=== PATIENT | female | born 1945 | race Hispanic/Latino ===

== ENCOUNTER 2017-08-23 07:10 | Inpatient (IN) | payer MEDICARE ==
[2017-08-19 11:31] VITALS: BMI 21.0
[2017-08-23 07:36] LABS: BASO # 0.01 K/mm3 (0.0-2.0); BASO % 0.2 % (0.0-3.0); EOS # 0.2 (0.0-0.7); GRAN # 2.98 (1.4-6.5); GRAN % 59.9 % (50.0-68.0); HEMOGLOBIN 9.9 g/dL (12.0-16.0); LYMPH # 1.4 (1.2-3.4); LYMPH % 28.3 % (22.0-35.0); MEAN CELL VOLUME 88.4 fl (80.0-105.0); MEAN CORPUSCULAR HEMOGLOBIN 28.1 pg (25.0-35.0); MEAN CORPUSCULAR HGB CONC 31.8 g/dl (31.0-37.0); MEAN PLATELET VOLUME 9.8 fl (7.0-11.0); MONO # 0.4 (0.1-0.6); MONO % 8.6 % (1.0-6.0); RBC 3.52 10^6/uL (3.5-6.1); RED CELL DISTRIBUTION WIDTH 16.2 % (11.5-14.5)
[2017-08-23] MEDS ORDERED: Lidocaine 2% Inj (20ml) ONE (07:37)
[2017-08-23] MEDS ORDERED: HEPARIN SODIUM/NS 3,000 ML IV ONE (07:38)
[2017-08-23] MEDS ORDERED: Nitroglycerin 50mg in D5W 50 MG/250 ML BOTTLE IV ONE (07:38)
[2017-08-23] MEDS ORDERED: Iodixanol 320 MG/ML 100 ML BOTTLE IV ONE ×2 (07:38→12:08)
[2017-08-23] MEDS ORDERED: Iodixanol 320 MG/ML 200 ML BOTTLE IV ONE (07:38)
[2017-08-23 07:48] LABS: BLOOD UREA NITROGEN 17 mg/dL (7-21); CALCIUM 9.3 mg/dL (8.4-10.5); GFR AFRICAN-AMERICAN > 60; GFR NON-AFRICAN AMERICAN 55
[2017-08-23 07:58] LABS: INR 0.95 (0.93-1.08); PARTIAL THROMBOPLASTIN TIME 30.1 Seconds (25.1-36.5); PROTHROMBIN TIME 10.9 SECONDS (9.4-12.5)
[2017-08-23] MEDS: Midazolam 2 MG/2 ML VIAL ONE ×6 (10:31→15:21)
[2017-08-23] MEDS ORDERED: Midazolam 2 MG/2 ML VIAL ONE (11:50)
[2017-08-23] MEDS ORDERED: Atropine-Diphenoxylate 0.025-2.5 mg Tab PO PRN (12:49)
[2017-08-23] MEDS ORDERED: Morphine 2 mg/ml ISec ONE (12:57)
[2017-08-23] MEDS ORDERED: Sodium Chloride 0.45% 1,000 ML IV SCH (13:00)
[2017-08-23] MEDS ORDERED: Morphine 2 mg/ml ISec IVP STA (13:11)
[2017-08-23] MEDS ORDERED: Iodixanol 320 mg/ml 150 ml Bottle IV ONE (14:25)
--- NOTE | 2017-08-23 14:25 | VASCULAR ---
PROCEDURE: Removal of tunneled right internal jugular venous access port. CLINICAL HISTORY: Colorectal CA. Completed chemotherapy. Remove port. PHYSICIAN(S): Enrique Velez M.D. TECHNIQUE: The relative risks and indications of the procedure were explained to the patient and consent obtained. The patient was placed supine on the arteriogram table and the right neck and chest prepped and draped usual sterile fashion. Conscious sedation and monitoring were provided throughout the procedure by a nurse. 1% Xylocaine was used to anesthetize the skin and soft tissues at the port. A 4 cm incision was made. The port was bluntly dissected and removed. The catheter was removed under fluoroscopic guidance. No retained catheter fragments were seen. The pocket was lavaged with normal saline. The pocket was closed in 2 layers. The patient tolerated the procedure well. IMPRESSION: 1. Removal of tunneled right internal jugular venous access port.
[2017-08-23 14:30] LABS: VENOUS BLOOD GAS PO2 29 mm/Hg (30-55); VENOUS BLOOD PH 7.24 (7.32-7.43)
--- NOTE | 2017-08-23 14:36 | VASCULAR ---
PROCEDURE: 1. Abdominal aortogram and bilateral lower extremity runoff with right selective views. 2. Right external iliac artery angioplasty and stent placement. External iliac rupture with stent graft placement 3. Right SFA silver Hawk atherectomy and drug-eluting balloon angioplasty HISTORY: Severe peripheral vascular disease. Previous pelvic radiation. Severe lower extremity claudication, right greater than left. PHYSICIAN(S): Enrique Velez M.D. TECHNIQUE: The relative risks and indications of the procedure were explained to the patient and her daughter and consent obtained. The patient was hydrated prior to the procedure and the appropriate labs drawn. The patient was placed supine on the arteriogram table and the left groin prepped and draped in the usual sterile fashion. Conscious sedation and monitoring were provided throughout the procedure by a nurse. Via a left common femoral artery approach, a 5 [place] sheath was placed in the left groin. Through the sheath and over a guidewire, a 5 [place] flush catheter was placed in the abdominal aorta at the level of the renal arteries and a PA DSA abdominal aortogram performed. The catheter was pulled down to the aortic bifurcation and bilateral oblique DSA pelvic arteriograms performed. Overlapping bilateral lower extremity DSA arteriograms were obtained from the inguinal ligaments to the ankles. A 0.035 angled Glidewire was advanced over the bifurcation and placed in the proximal right SFA. A 7 [place] 45 cm destination sheath was placed in the right common femoral artery. Multiple pull-back pressures were performed through the right iliac system which demonstrated a significant 40-50 millimeter gradient across the right external iliac artery. The multi focal disease in the right SFA was crossed with a 5 [place] catheter and angled Glidewire. Exchange is made for 0.014 support guidewire. Heparin and nitroglycerin were given. [place] Hawk atherectomy of the mid to distal right SFA was performed with and LS catheter. Approximately 5 passes were performed. An improved but suboptimal result was obtained. The mid-distal right SFA was dilated with a 5 mm drug-eluting balloon. An excellent angiographic result was obtained and no stent was required. The sheath was retracted into the right common iliac artery. The right external iliac artery was dilated with a 7 mm balloon. An improved but suboptimal result was obtained. An 8 mm x 120 mm self expanding stent was deployed across the right external iliac artery. The stent was post dilated. The patient experienced significant pain at this point. A DSA angiogram revealed extravasation. Immediately, an 8 mm balloon was reinflated at the extravasation site. The patient was stabilized. 0.018 guidewire was placed in the right SFA through the balloon catheter. Quickly, exchange is made and deployment of 7 mm x 10 cm Viabahn stent graft. The stent graft was dilated with a 7 mm balloon. Completion angiograms demonstrated no evidence of significant extravasation. The patient was stable without significant pain. She was transferred to recovery. A Perclose device was deployed at the left groin puncture site. FINDINGS: There is diffuse calcified atherosclerotic disease of the visualized abdominal aorta. A small aneurysm is present. The nephrograms symmetric in size. There are 2 right renal arteries and single left renal artery present. The aortic bifurcation demonstrates calcified disease. Irregularity of the left common iliac artery with stenosis is noted. A right common iliac artery is calcified and smooth. The external iliac arteries are small in calcified bilaterally. No obvious radiographic stenosis is noted in the right external iliac artery. However the ABIs are abnormal and pull-back pressures demonstrated a significant gradient across the right external iliac artery. The left external iliac artery demonstrates similar calcified disease. Right lower extremity: The right common femoral artery is patent. The right profunda femoral artery is patent. The right superficial femoral artery is small and smoothly calcified with multiple moderate to severe stenoses in the mid to distal 3rd. The right popliteal artery is patent and relatively normal. The right trifurcation is intact. There is normal 3 vessel tibial runoff on the right. Left lower extremity: Left common femoral artery is patent. The left profunda femoral artery is patent. The left superficial femoral artery is small and calcified with a moderate focal stenosis in the adductor canal. The left popliteal artery is patent and continuous. The left trifurcation is intact. There is normal 3 vessel tibial runoff on the left.. IMPRESSION: 1.Right external iliac artery angioplasty and stent placement 2. Focal rupture of the mid right external iliac artery. This was successfully treated with a Viabahn stent graft. 3. Successful right SFA silver Hawk atherectomy and drug-eluting balloon angioplasty.
[2017-08-23 14:37] LABS: MEAN CELL VOLUME 88.3 fl (80.0-105.0); MEAN CORPUSCULAR HEMOGLOBIN 28.6 pg (25.0-35.0); MEAN CORPUSCULAR HGB CONC 32.4 g/dl (31.0-37.0); MEAN PLATELET VOLUME 10.4 fl (7.0-11.0); RBC 2.31 10^6/uL (3.5-6.1); RED CELL DISTRIBUTION WIDTH 16.5 % (11.5-14.5); WHITE BLOOD COUNT 6.6 10^3/ul (4.5-11.0)
[2017-08-23 14:46] LABS: HEMOGLOBIN 6.6 g/dL (12.0-16.0); INR 1.15 (0.93-1.08); PROTHROMBIN TIME 13.1 SECONDS (9.4-12.5)
[2017-08-23] MEDS ORDERED: Protamine 50mg/5mL Inj IV ONE (14:56)
[2017-08-23] MEDS ORDERED: Sodium Bicarbonate 8.4% 150 MEQ in Dextrose 5% In Water 1,000 ML IV SCH (15:30)
--- NOTE | 2017-08-23 15:34 | CP.PCM.HP ---
History of Present Illness - History of Present Illness History of Present Illness: 72 year old female with history of rectal cancer, emphysema, and peripheral vascular disease who had angiogram today by Dr. Enrique Velez. Patient began bleeding and hemoglobin dropped from 9.9 to 6.6. Patient's blood pressure also dropped, so she was transferred to the Intensive Care unit for admission. She complains of abdominal and groin pain at this time. Present on Admission - Present on Admission Any Indicators Present on Admission: No History of DVT/PE: No History of Uncontrolled Diabetes: No Urinary Catheter: No Decubitus Ulcer Present: No Review of Systems - Cardiovascular Cardiovascular: absent: Chest Pain, Diaphoresis, Dyspnea - Respiratory Respiratory: absent: Cough, Dyspnea, Hemoptysis - Gastrointestinal Gastrointestinal: As Per HPI, Abdominal Pain Past Patient History - Infectious Disease Hx of Infectious Diseases: None - Tetanus Immunizations Tetanus Immunization: >10 years Ago - Past Social History Smoking Status: Current Some Days Smoker - CARDIAC Hx Pacemaker: No - PULMONARY Hx Respiratory Disorders: Yes Hx Chronic Obstructive Pulmonary Disease (COPD): Yes Other/Comment: SMOKES CIGARETTES 2 TO A PPD - HEENT Hx HEENT Problems: (WEARS RX GLASSES) - RENAL Hx Chronic Kidney Disease: No - HEMATOLOGICAL/ONCOLOGICAL Hx Blood Transfusions: No Hx Blood Transfusion Reaction: No - INTEGUMENTARY Hx Dermatological Problems: No - MUSCULOSKELETAL/RHEUMATOLOGICAL Hx Musculoskeletal Disorders: No - GASTROINTESTINAL Hx Gastrointestinal Disorders: Yes Hx Diverticulitis: Yes Hx Gall Bladder Disease: Yes (CHOLECYSTECTOMY) Other/Comment: rectal cancer,PERIRECTAL ABSCESS - GENITOURINARY/GYNECOLOGICAL Hx Genitourinary Disorders: No - PSYCHIATRIC Hx Emotional Abuse: No Hx Physical Abuse: No Hx Substance Use: No - SURGICAL HISTORY Hx Surgeries: Yes - ANESTHESIA Hx Anesthesia Reactions: Yes Hx Malignant Hyperthermia: No Meds Allergies/Adverse Reactions: Allergies Allergy/AdvReac Type Severity Reaction Status Date / Time ciprofloxacin [From Cipro] Allergy VOMITING Verified 08/23/17 07:48 Physical Exam - Constitutional Appears: No Acute Distress - Head Exam Head Exam: ATRAUMATIC, NORMOCEPHALIC - Respiratory Exam Respiratory Exam: Clear to Auscultation Bilateral, NORMAL BREATHING PATTERN - Cardiovascular Exam Cardiovascular Exam: +S1, +S2 - GI/Abdominal Exam GI & Abdominal Exam: Soft, Tenderness - Neurological Exam Neurological exam: Alert, CN II-XII Intact, Oriented x3 Results - Vital Signs Recent Vital Signs: Last Vital Signs Temp 97.8 F 08/23/17 14:30 Pulse 71 08/23/17 14:30 Resp 16 08/23/17 14:30 BP 122/53 L 08/23/17 14:30 Pulse Ox 99 08/23/17 07:20 - Labs Result Diagrams: 08/23/17 14:15 08/23/17 07:25 Labs: Laboratory Results - last 24 hr 08/23/17 08/23/17 08/23/17 07:25 07:25 07:25 WBC 5.0 D RBC 3.52 Hgb 9.9 L Hct 31.1 L MCV 88.4 MCH 28.1 MCHC 31.8 RDW 16.2 H Plt Count 253 MPV 9.8 Gran % 59.9 Lymph % (Auto) 28.3 [place] % (Auto) 8.6 H Eos % (Auto) 3.0 Baso % (Auto) 0.2 Gran # 2.98 Lymph # (Auto) 1.4 [place] # (Auto) 0.4 Eos # (Auto) 0.2 Baso # (Auto) 0.01 PT 10.9 INR 0.95 APTT 30.1 pO2 VBG pH VBG pCO2 VBG HCO3 VBG Total CO2 VBG O2 Sat (Calc) VBG Base Excess VBG Potassium Glucose Lactate FiO2 Sodium 147 Potassium 3.9 Chloride 110 H Carbon Dioxide 26 Anion Gap 14 BUN 17 Creatinine 1.0 Est GFR ( Amer) > 60 Est GFR (Non-Af Amer) 55 Random Glucose 93 Calcium 9.3 Troponin I Venous Blood Potassium Blood Type Antibody Screen Crossmatch BBK History Checked 08/23/17 08/23/17 08/23/17 14:15 14:15 14:15 WBC 6.6 D RBC 2.31 L Hgb 6.6 L* D Hct 20.4 L* MCV 88.3 MCH 28.6 MCHC 32.4 RDW 16.5 H Plt Count 193 MPV 10.4 Gran % Lymph % (Auto) [place] % (Auto) Eos % (Auto) Baso % (Auto) Gran # Lymph # (Auto) [place] # (Auto) Eos # (Auto) Baso # (Auto) PT 13.1 H INR 1.15 H APTT 51.0 H pO2 VBG pH VBG pCO2 VBG HCO3 VBG Total CO2 VBG O2 Sat (Calc) VBG Base Excess VBG Potassium Glucose Lactate FiO2 Sodium Potassium Chloride Carbon Dioxide Anion Gap BUN Creatinine Est GFR ( Amer) Est GFR (Non-Af Amer) Random Glucose Calcium Troponin I Venous Blood Potassium Blood Type A POSITIVE Antibody Screen Negative Crossmatch See Detail BBK History Checked No verified bt 08/23/17 08/23/17 14:15 14:15 WBC RBC Hgb Hct MCV MCH MCHC RDW Plt Count MPV Gran % Lymph % (Auto) [place] % (Auto) Eos % (Auto) Baso % (Auto) Gran # Lymph # (Auto) [place] # (Auto) Eos # (Auto) Baso # (Auto) PT INR APTT pO2 29 L VBG pH 7.24 L VBG pCO2 45.0 VBG HCO3 19.3 L VBG Total CO2 20.7 L VBG O2 Sat (Calc) 59.7 VBG Base Excess -8.0 L VBG Potassium 3.8 Glucose 119 H Lactate 1.2 FiO2 21.0 Sodium 142.0 Potassium Chloride 118.0 H Carbon Dioxide Anion Gap BUN Creatinine Est GFR ( Amer) Est GFR (Non-Af Amer) Random Glucose Calcium Troponin I < 0.01 Venous Blood Potassium 3.8 Blood Type Antibody Screen Crossmatch BBK History Checked Assessment & Plan - Assessment and Plan (Free Text) Assessment: Retroperitoneal bleed after angiogram Acute blood loss anemia COPD History of Rectal Ca s/p radiation and chemo History of diverticulitis Plan: Patient is admitted to the ICU for acute blood loss anemia after angiogram. Patient will received blood transfusion. monitor hemoglobin. Respiratory treatments via nebulizer for COPD
--- NOTE | 2017-08-23 15:37 | RAD ---
HISTORY: POST TRACH COMPARISON: 06/03/2017 FINDINGS: LUNGS: No active pulmonary disease. PLEURA: No significant pleural effusion identified, no pneumothorax apparent. CARDIOVASCULAR: Normal. OSSEOUS STRUCTURES: No significant abnormalities. VISUALIZED UPPER ABDOMEN: Normal. OTHER FINDINGS: None. IMPRESSION: No active disease.
[2017-08-23 15:38] LABS: ARTERIAL BLOOD GAS HCO3 17.7 mmol/L (21-28); ARTERIAL BLOOD GAS O2 SAT 97.8 % (95-98); ARTERIAL BLOOD GAS PCO2 32 mm/Hg (35-45); ARTERIAL BLOOD GAS PH 7.35 (7.35-7.45); ARTERIAL BLOOD GAS TCO2 18.7 mmol.L (22-28)
--- NOTE | 2017-08-23 15:39 | CT ---
PROCEDURE: CT Pelvis with and without contrast HISTORY: rt ext iliac MUSICAL ENGINEER/rupture. S/p stent graft. ?extr COMPARISON: Comparison to angiographic images from 09/20 2017 at 1:12 p.m. TECHNIQUE: Contiguous axial images of the pelvis with contrast. Coronal and sagittal reformats generated. Contrast dose: 75 cc of Visipaque Radiation dose: Total exam DLP = 650 mGy-cm. This CT exam was performed using one or more of the following dose reduction techniques: Automated exposure control, adjustment of the mA and/or kV according to patient size, and/or use of iterative reconstruction technique. FINDINGS: THE PRECONTRAST IMAGES SHOW A LARGE AMOUNT OF EXTRAVASATED DENSE CONTRAST MATERIAL IN THE RETROPERITONEAL SPACE ON THE RIGHT SIDE. . THIS CORRELATES WITH THE ANGIOGRAPHIC IMAGES. THE CONTRAST IS IN THE RIGHT [place] RENAL SPACE SURROUNDING THE KIDNEY AND IN THE RIGHT PERICOLIC GUTTER.: The postcontrast images show no evidence of new or continued contrast extravasation. A right-sided iliac stent is visualized. The study was reviewed with Dr. Mosquera at 3:20 p.m. IMPRESSION: Extensive extravasation of contrast into the retroperitoneal space on the right from recent right iliac artery rupture. There is no evidence of new or continued extravasation
--- NOTE | 2017-08-23 15:57 | CP.PCM.CON ---
History of Present Illness - History of Present Illness History of Present Illness: Vascular Surgery Consult for Dr. Mosquera Consulted for: retroperitoneal hemorrhage Patient is a 72y/o female with PMH of rectal cancer, cervical cancer, and chronic cigarette abuse who underwent an Abdominal aortogram and bilateral lower extremity runoff, right external iliac artery angioplasty and stent placement, and right SFA atherectomy and drug-eluting balloon angioplasty. During the procedure a rupture of the external iliac artery occured and a stent graft placement done at that time, which appeared to stop the hemorrhage. Patient became moderately hypotensive but responded appropriately to fluids, and is currently normacardic. Post-procedure MRA of the lower extremities showed contrast in the retroperitoneum indicating there was a previous hemorrhage but no new extravasation was evident. Patient was transferred to the ICU. Patient's hemoglobin dropped from 9.9 to 6.6. Patient currently complaining of pain in her abdomen, bilateral groins, and back. Patient denies any nausea or vomiting. Patient has good urine output. Review of Systems - Review of Systems All systems: reviewed and no additional remarkable complaints except (as per the HPI) Past Patient History - Infectious Disease Hx of Infectious Diseases: None - Tetanus Immunizations Tetanus Immunization: >10 years Ago - Past Social History Smoking Status: Current Some Days Smoker Alcohol: None Drugs: Denies - CARDIAC Hx Pacemaker: No - PULMONARY Hx Respiratory Disorders: Yes Hx Chronic Obstructive Pulmonary Disease (COPD): Yes Other/Comment: SMOKES CIGARETTES 2 TO A PPD - HEENT Hx HEENT Problems: (WEARS RX GLASSES) - RENAL Hx Chronic Kidney Disease: No - HEMATOLOGICAL/ONCOLOGICAL Hx Blood Transfusions: No Hx Blood Transfusion Reaction: No - INTEGUMENTARY Hx Dermatological Problems: No - MUSCULOSKELETAL/RHEUMATOLOGICAL Hx Musculoskeletal Disorders: No - GASTROINTESTINAL Hx Gastrointestinal Disorders: Yes Hx Diverticulitis: Yes Hx Gall Bladder Disease: Yes (CHOLECYSTECTOMY) Other/Comment: rectal cancer,PERIRECTAL ABSCESS - GENITOURINARY/GYNECOLOGICAL Hx Genitourinary Disorders: No - PSYCHIATRIC Hx Emotional Abuse: No Hx Physical Abuse: No Hx Substance Use: No - SURGICAL HISTORY Hx Surgeries: Yes - ANESTHESIA Hx Anesthesia Reactions: Yes Hx Malignant Hyperthermia: No Meds Allergies/Adverse Reactions: Allergies Allergy/AdvReac Type Severity Reaction Status Date / Time ciprofloxacin [From Cipro] Allergy VOMITING Verified 08/23/17 07:48 - Medications Medications: Current Medications Albuterol/Ipratropium (Duoneb 3 Mg/0.5 Mg (3 Ml) Ud) 3 ml IH [id number] [facility] Atorvastatin Calcium (Lipitor) 20 mg PO DAILY [facility] Diazepam (Valium) 5 mg PO DAILY PRN; Protocol PRN Reason: Anxiety Diphenhydramine HCl (Benadryl) 50 mg PO HS [facility] Diphenoxylate HCl/Atropine (Lomotil 0.025-2.5 Mg Tablet) 2.5 tab PO Q6H PRN PRN Reason: Diarrhea Sodium Bicarbonate 150 meq/ (Dextrose) 1,150 mls @ 100 mls/hr IV .[id number] [facility] Morphine Sulfate (Morphine) 2 mg IVP Q4H PRN PRN Reason: Pain, severe (8-10) Ondansetron HCl (Zofran Inj) 4 mg IVP ONCE PRN PRN Reason: Nausea/Vomiting Oxycodone/Acetaminophen (Percocet 5/325 Mg Tab) 1 tab PO Q4H PRN PRN Reason: Pain, moderate (4-7) Stop: 08/26/17 12:47 Pantoprazole Sodium (Protonix Inj) 40 mg IVP DAILY [facility] Last Admin: 08/23/17 15:43 Dose: 40 mg Tramadol HCl (Ultram) 50 mg PO Q6H PRN PRN Reason: Pain, moderate (4-7) Zolpidem Tartrate (Ambien) 5 mg PO HS PRN; Protocol PRN Reason: Sleep Physical Exam - Constitutional Appears: Non-toxic, No Acute Distress - Head Exam Head Exam: ATRAUMATIC, NORMOCEPHALIC - Eye Exam Eye Exam: EOMI Additional comments: scleral pallor - ENT Exam ENT Exam: Mucous Membranes Moist - Respiratory Exam Respiratory Exam: NORMAL BREATHING PATTERN. absent: Accessory Muscle Use, Respiratory Distress - Cardiovascular Exam Cardiovascular Exam: RRR - GI/Abdominal Exam GI & Abdominal Exam: Soft, Tenderness (diffuse tenderness worse in the RLQ and the LLQ and suprapubis). absent: Distended, Guarding, Rebound, Rigid - Extremities Exam Extremities exam: Positive for: pedal pulses present. Negative for: calf tenderness, pedal edema Additional comments: posterior popliteal pulses palpable BL. Both lower extremities warm, dry, normal color, neuromuscular exam intact. Left groin access point without sanguinous saturation, no swelling bilateral groins - Back Exam Additional comments: unable to assess d/t current movement restrictions post angioplasty with groin access - Neurological Exam Neurological exam: Alert, Oriented x3 - Psychiatric Exam Psychiatric exam: Normal Affect, Normal Mood - Skin Skin Exam: Dry, Intact, Pallor, Warm Results - Vital Signs Recent Vital Signs: Last Vital Signs Temp 97.8 F 08/23/17 14:30 Pulse 71 08/23/17 14:30 Resp 16 08/23/17 14:30 BP 122/53 L 08/23/17 14:30 Pulse Ox 99 08/23/17 07:20 - Labs Result Diagrams: 08/23/17 14:15 08/23/17 07:25 Labs: Laboratory Results - last 24 hr 08/23/17 08/23/17 08/23/17 07:25 07:25 07:25 WBC 5.0 D RBC 3.52 Hgb 9.9 L Hct 31.1 L MCV 88.4 MCH 28.1 MCHC 31.8 RDW 16.2 H Plt Count 253 MPV 9.8 Gran % 59.9 Lymph % (Auto) 28.3 [place] % (Auto) 8.6 H Eos % (Auto) 3.0 Baso % (Auto) 0.2 Gran # 2.98 Lymph # (Auto) 1.4 [place] # (Auto) 0.4 Eos # (Auto) 0.2 Baso # (Auto) 0.01 PT 10.9 INR 0.95 APTT 30.1 pCO2 pO2 HCO3 ABG pH ABG Total CO2 ABG O2 Saturation ABG Base Excess ABG Potassium VBG pH VBG pCO2 VBG HCO3 VBG Total CO2 VBG O2 Sat (Calc) VBG Base Excess VBG Potassium Glucose Lactate FiO2 Sodium 147 Potassium 3.9 Chloride 110 H Carbon Dioxide 26 Anion Gap 14 BUN 17 Creatinine 1.0 Est GFR ( Amer) > 60 Est GFR (Non-Af Amer) 55 Random Glucose 93 Calcium 9.3 Troponin I Arterial Blood Potassium Venous Blood Potassium Blood Type Blood Type Confirm Antibody Screen Crossmatch BBK History Checked 08/23/17 08/23/17 08/23/17 14:15 14:15 14:15 WBC 6.6 D RBC 2.31 L Hgb 6.6 L* D Hct 20.4 L* MCV 88.3 MCH 28.6 MCHC 32.4 RDW 16.5 H Plt Count 193 MPV 10.4 Gran % Lymph % (Auto) [place] % (Auto) Eos % (Auto) Baso % (Auto) Gran # Lymph # (Auto) [place] # (Auto) Eos # (Auto) Baso # (Auto) PT 13.1 H INR 1.15 H APTT 51.0 H pCO2 pO2 HCO3 ABG pH ABG Total CO2 ABG O2 Saturation ABG Base Excess ABG Potassium VBG pH VBG pCO2 VBG HCO3 VBG Total CO2 VBG O2 Sat (Calc) VBG Base Excess VBG Potassium Glucose Lactate FiO2 Sodium Potassium Chloride Carbon Dioxide Anion Gap BUN Creatinine Est GFR ( Amer) Est GFR (Non-Af Amer) Random Glucose Calcium Troponin I Arterial Blood Potassium Venous Blood Potassium Blood Type A POSITIVE Blood Type Confirm Antibody Screen Negative Crossmatch See Detail BBK History Checked No verified bt 08/23/17 08/23/17 08/23/17 14:15 14:15 14:40 WBC RBC Hgb Hct MCV MCH MCHC RDW Plt Count MPV Gran % Lymph % (Auto) [place] % (Auto) Eos % (Auto) Baso % (Auto) Gran # Lymph # (Auto) [place] # (Auto) Eos # (Auto) Baso # (Auto) PT INR APTT pCO2 pO2 29 L HCO3 ABG pH ABG Total CO2 ABG O2 Saturation ABG Base Excess ABG Potassium VBG pH 7.24 L VBG pCO2 45.0 VBG HCO3 19.3 L VBG Total CO2 20.7 L VBG O2 Sat (Calc) 59.7 VBG Base Excess -8.0 L VBG Potassium 3.8 Glucose 119 H Lactate 1.2 FiO2 21.0 Sodium 142.0 Potassium Chloride 118.0 H Carbon Dioxide Anion Gap BUN Creatinine Est GFR ( Amer) Est GFR (Non-Af Amer) Random Glucose Calcium Troponin I < 0.01 Arterial Blood Potassium Venous Blood Potassium 3.8 Blood Type Blood Type Confirm A POSITIVE Antibody Screen Crossmatch BBK History Checked 08/23/17 15:30 WBC RBC Hgb Hct MCV MCH MCHC RDW Plt Count MPV Gran % Lymph % (Auto) [place] % (Auto) Eos % (Auto) Baso % (Auto) Gran # Lymph # (Auto) [place] # (Auto) Eos # (Auto) Baso # (Auto) PT INR APTT pCO2 32 L pO2 75.0 L HCO3 17.7 L ABG pH 7.35 ABG Total CO2 18.7 L ABG O2 Saturation 97.8 ABG Base Excess -6.8 L ABG Potassium 3.5 L VBG pH VBG pCO2 VBG HCO3 VBG Total CO2 VBG O2 Sat (Calc) VBG Base Excess VBG Potassium Glucose 112 H Lactate 0.9 FiO2 21.0 Sodium 139.0 Potassium Chloride 117.0 H Carbon Dioxide Anion Gap BUN Creatinine Est GFR ( Amer) Est GFR (Non-Af Amer) Random Glucose Calcium Troponin I Arterial Blood Potassium 3.5 L Venous Blood Potassium Blood Type Blood Type Confirm Antibody Screen Crossmatch BBK History Checked Assessment & Plan - Assessment and Plan (Free Text) Assessment: 72F with retroperitoneal hemorrhage d/t iatrogenic external iliac artery rupture. Hemorrhage appears to have resolved currently Hemodynamically stable Plan: -Continue ICU monitoring -Strict I&O, close monitoring of vitals -serial abdominal exams -Q4 H/H -Administering PRBC and platelets -No vascular surgery intervention indicated at this point--will continue to monitor closely Seen and examined with Dr. Demetri Russo, PGY2
[2017-08-23] MEDS: Morphine 2 mg/ml ISec IVP PRN ×2 (16:12→20:21)
[2017-08-23] MEDS: Albuterol-Ipratrop 3 mg / 0.5 (3 ml) UD IH SCH (20:50)
[2017-08-23] MEDS ORDERED: Influenza Vaccine 60 mcg/0.5 mL SYR (4YR UP) IM ONE (21:36)
[2017-08-23] MEDS ORDERED: Pneumococcal 23-Valent Vaccine IM ONE (21:36)
--- NOTE | 2017-08-23 22:18 | CARD ---
APPROVED REPORT EKG Measurement Heart [id number] <Conclusion> Normal sinus rhythm Low voltage QRS Prolonged QT Abnormal ECG
[2017-08-23 22:28] LABS: HEMOGLOBIN 9.1 g/dL (12.0-16.0); MEAN CELL VOLUME 86.2 fl (80.0-105.0); MEAN CORPUSCULAR HEMOGLOBIN 29.2 pg (25.0-35.0); MEAN CORPUSCULAR HGB CONC 33.8 g/dl (31.0-37.0); MEAN PLATELET VOLUME 9.2 fl (7.0-11.0); RBC 3.12 10^6/uL (3.5-6.1); RED CELL DISTRIBUTION WIDTH 14.9 % (11.5-14.5); WHITE BLOOD COUNT 6.5 10^3/ul (4.5-11.0)
[2017-08-23 22:29] LABS: VENOUS BLOOD GAS BASE EXCESS -2.2 mmol/L (0.0-2.0); VENOUS BLOOD GAS PO2 31 mm/Hg (30-55); VENOUS BLOOD PH 7.39 (7.32-7.43)
[2017-08-23 22:42] LABS: INR 1.03 (0.93-1.08); PARTIAL THROMBOPLASTIN TIME 27.8 Seconds (25.1-36.5); PROTHROMBIN TIME 11.8 SECONDS (9.4-12.5)
[2017-08-24 01:59] LABS: HEMOGLOBIN 8.6 g/dL (12.0-16.0); MEAN CELL VOLUME 85.2 fl (80.0-105.0); MEAN CORPUSCULAR HEMOGLOBIN 28.9 pg (25.0-35.0); MEAN CORPUSCULAR HGB CONC 33.9 g/dl (31.0-37.0); MEAN PLATELET VOLUME 8.6 fl (7.0-11.0); RBC 2.98 10^6/uL (3.5-6.1); RED CELL DISTRIBUTION WIDTH 14.9 % (11.5-14.5); WHITE BLOOD COUNT 6.4 10^3/ul (4.5-11.0)
[2017-08-24] MEDS: Albuterol-Ipratrop 3 mg / 0.5 (3 ml) UD IH SCH ×4 (02:15→19:46)
[2017-08-24] MEDS: Morphine 2 mg/ml ISec IVP PRN ×4 (03:09→23:38)
--- NOTE | 2017-08-24 03:50 | CP.PCM.PN ---
Subjective - Date & Time of Evaluation Date of Evaluation: 08/24/17 Time of Evaluation: 03:30 - Subjective Subjective: Patient seen and examined at bedside. Patient remains hemodynamically within normal limits. Patient complains of persistent R lower abdominal and right groin pain well controlled on current pain medication. Patient has adequate urine output. After receiving 2 units of PRBC and 2 Units of FFP patients hemoglobin increased from 6.6 up to 9.1 and then decreased to 8.6. Another CBC is pending at 5AM. Objective - Vital Signs/Intake and Output Vital Signs (last 24 hours): Temp Pulse Resp BP Pulse Ox 98.3 F 96 H 22 125/54 L 91 L 08/23/17 21:24 08/24/17 00:07 08/24/17 00:07 08/24/17 00:07 08/24/17 00:07 Intake and Output: 08/23/17 08/24/17 18:59 06:59 Intake Total 1342 325 Output Total 2000 Balance -658 325 - Medications Medications: Current Medications Albuterol/Ipratropium (Duoneb 3 Mg/0.5 Mg (3 Ml) Ud) 3 ml IH [id number] [facility] Last Admin: 08/23/17 20:50 Dose: 3 ml Atorvastatin Calcium (Lipitor) 20 mg PO DAILY DEDE Diazepam (Valium) 5 mg PO DAILY PRN; Protocol PRN Reason: Anxiety Diphenhydramine HCl (Benadryl) 50 mg PO HS [facility] Last Admin: 08/23/17 22:08 Dose: 50 mg Diphenoxylate HCl/Atropine (Lomotil 0.025-2.5 Mg Tablet) 2.5 tab PO Q6H PRN PRN Reason: Diarrhea Sodium Bicarbonate 150 meq/ (Dextrose) 1,150 mls @ 100 mls/hr IV .[id number] [facility] Morphine Sulfate (Morphine) 2 mg IVP Q4H PRN PRN Reason: Pain, severe (8-10) Last Admin: 08/24/17 03:09 Dose: 2 mg Ondansetron HCl (Zofran Inj) 4 mg IVP ONCE PRN PRN Reason: Nausea/Vomiting Oxycodone/Acetaminophen (Percocet 5/325 Mg Tab) 1 tab PO Q4H PRN PRN Reason: Pain, moderate (4-7) Stop: 08/26/17 12:47 Pantoprazole Sodium (Protonix Inj) 40 mg IVP DAILY DEDE Last Admin: 08/23/17 15:43 Dose: 40 mg Tramadol HCl (Ultram) 50 mg PO Q6H PRN PRN Reason: Pain, moderate (4-7) Zolpidem Tartrate (Ambien) 5 mg PO HS PRN; Protocol PRN Reason: Sleep Last Admin: 08/23/17 22:08 Dose: 5 mg - Labs Labs: 08/24/17 01:55 08/23/17 07:25 PT 11.8 SECONDS (9.4-12.5) 08/23/17 22:25 INR 1.03 (0.93-1.08) 08/23/17 22:25 APTT 27.8 Seconds (25.1-36.5) 08/23/17 22:25 - Constitutional Appears: Non-toxic, No Acute Distress - Head Exam Head Exam: ATRAUMATIC, NORMOCEPHALIC - Eye Exam Eye Exam: Normal appearance - ENT Exam ENT Exam: Mucous Membranes Moist, Normal Oropharynx - Respiratory Exam Respiratory Exam: NORMAL BREATHING PATTERN. absent: Accessory Muscle Use, Respiratory Distress - Cardiovascular Exam Cardiovascular Exam: RRR - GI/Abdominal Exam GI & Abdominal Exam: Soft, Tenderness (RLQ). 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 Plan: -Strict I&O, close monitoring of vitals -serial abdominal exams -H/H responded appropriately to blood products and is stable this AM -Administer blood and blood products as needed -No vascular surgery intervention indicated at this point--will continue to monitor closely Discussed with Dr. Mosquera, further recommendations per her Kayleigh Russo, PGY2
[2017-08-24 05:40] LABS: EOS % 0.4 % (1.5-5.0); GRAN # 4.02 (1.4-6.5); GRAN % 70.4 % (50.0-68.0); HEMOGLOBIN 8.9 g/dL (12.0-16.0); LYMPH # 1.2 (1.2-3.4); LYMPH % 20.1 % (22.0-35.0); MEAN CELL VOLUME 85.6 fl (80.0-105.0); MEAN CORPUSCULAR HEMOGLOBIN 28.5 pg (25.0-35.0); MEAN CORPUSCULAR HGB CONC 33.3 g/dl (31.0-37.0); MEAN PLATELET VOLUME 9.6 fl (7.0-11.0); MONO # 0.5 (0.1-0.6); MONO % 9.1 % (1.0-6.0); RBC 3.12 10^6/uL (3.5-6.1); RED CELL DISTRIBUTION WIDTH 15.1 % (11.5-14.5); WHITE BLOOD COUNT 5.7 10^3/ul (4.5-11.0)
[2017-08-24 06:01] LABS: BLOOD UREA NITROGEN 8 mg/dL (7-21); CALCIUM 8.5 mg/dL (8.4-10.5); GFR AFRICAN-AMERICAN > 60; GFR NON-AFRICAN AMERICAN > 60
[2017-08-24] MEDS: Oxycodone/Acetaminophen 5/325 mg Tab PO PRN ×3 (06:39→22:07)
--- NOTE | 2017-08-24 07:41 | CP.CCUPN ---
<Td Rubio - Last Filed: 08/24/17 08:05> CCU Subjective - Physician Review Subjective (Free Text): Td Rubio PGY1 ICU Progress Note for Dr. Rivera Patient was seen and examined at bedside in ICU. Patient is awake and alert and states that she is feeling much better. There were no acute overnight events. The patient states that her pain is better tolerated and she denies any dizziness, faintness, weakness, shortness of breath, chest pain, severe abdominal pain or new pain in legs/abdomen. Her pain is controlled well with current regimen. The patient denies any n/v/d and is eager to eat and has tolerated PO diet. The patient was strongly encouraged to stop smoking. CCU Objective - Vital Signs / Intake & Output Vital Signs (Last 4 hours): Vital Signs Pulse Resp BP Pulse Ox 08/24/17 06:10 93 H 29 H 89 L 08/24/17 06:07 91 H 23 122/82 90 L 08/24/17 06:00 91 H 21 89 L 08/24/17 05:52 92 H 22 135/59 L 88 L 08/24/17 05:50 93 H 22 88 L 08/24/17 05:40 93 H 22 89 L 08/24/17 05:37 93 H 21 138/78 89 L 08/24/17 05:30 94 H 24 89 L 08/24/17 05:22 93 H 21 138/63 89 L 08/24/17 05:20 95 H 27 H 90 L 08/24/17 05:10 92 H 23 89 L 08/24/17 05:07 93 H 20 133/64 89 L 08/24/17 05:00 95 H 22 90 L 08/24/17 04:52 92 H 19 143/62 90 L 08/24/17 04:50 91 H 21 90 L 08/24/17 04:40 92 H 18 90 L 08/24/17 04:37 92 H 20 136/63 90 L 08/24/17 04:30 93 H 16 91 L 08/24/17 04:22 92 H 21 135/75 90 L 08/24/17 04:20 94 H 21 89 L 08/24/17 04:10 96 H 32 H 89 L 08/24/17 04:07 95 H 18 141/64 89 L 08/24/17 04:00 95 H 21 88 L 08/24/17 03:52 94 H 17 138/73 90 L 08/24/17 03:50 93 H 17 90 L 08/24/17 03:40 95 H 20 89 L Intake and Output (Last 8hrs): Intake & Output 08/23/17 08/24/17 08/24/17 22:59 06:59 14:59 Intake Total 1667 568 Output Total 1999 1999 Balance -333 -1432 Weight 115 lb Intake: IV 40 50 Left Wrist 10 Right Antecubital 30 50 Oral 0 Blood Product 1607 518 Red Blood Cells Cpd As1 325 Lr Unit [id number] Red Blood Cells Cpd As1 325 Lr Unit [id number] Other 20 Red Blood Cells Cpd As1 20 Lr Unit [id number] Output: Urine 1999 1999 Urethral (Nogueira) 1999 1999 Other: Voiding Method Indwelling Catheter # Bowel Movements 0 - Physical Exam Head: Positive for: Atraumatic, Normocephalic Pupils: Positive for: PERRL Extroacular Muscles: Positive for: EOMI Conjunctiva: Positive for: Normal Ears: Positive for: Normal Mouth: Positive for: Moist Mucous Membranes Neck: Positive for: Normal Range of Motion Respiratory/Chest: Positive for: Clear to Auscultation, Good Air Exchange. Negative for: Respiratory Distress, Accessory Muscle Use, Wheezes, Rales, Rhonchi Cardiovascular: Positive for: Regular Rate and Rhythm, Normal S1, S2. Negative for: Murmurs Abdomen: Positive for: Tenderness (deep palpation RLQ ), Normal Bowel Sounds, Other (no expanding hematomas noted, sites dressed clean/dry/intact). Negative for: Distention, Peritoneal Signs, Rebound, Guarding Back: Positive for: Normal Inspection Upper Extremity: Positive for: Normal Inspection, Normal ROM, NORMAL PULSES, Neurovascularly Intact Lower Extremity: Positive for: Normal Inspection, NORMAL PULSES (strong pulses by doppler; palpable 2+ b/l by hand ), Capillary Refill < 2 s. Negative for: Edema, CALF TENDERNESS Neurological: Positive for: GCS=15, CN II-XII Intact, Speech Normal, Motor Func Grossly Intact Skin: Positive for: Warm, Normal Color Psychiatric: Positive for: Alert, Oriented x 3 - Medications Active Medications: Active Medications Generic Name Dose Route Start Last Admin Trade Name Freq PRN Reason Stop Dose Admin Albuterol/Ipratropium 3 ml 08/23/17 20:00 08/24/17 07:29 Duoneb 3 Mg/0.5 Mg (3 Ml) Ud IH 3 ml [id number] CORA Administration Atorvastatin Calcium 20 mg 08/24/17 10:00 Lipitor PO DAILY CORA Diazepam 5 mg 08/23/17 12:49 Valium PO DAILY PRN Anxiety Protocol Diphenhydramine HCl 50 mg 08/23/17 22:00 08/23/17 22:08 Benadryl PO 50 mg HS CORA Administration Diphenoxylate HCl/Atropine 2.5 tab 08/23/17 12:49 Lomotil 0.025-2.5 Mg Tablet PO Q6H PRN Diarrhea Sodium Bicarbonate 150 meq/ 1,150 mls @ 100 mls/hr 08/23/17 15:30 Dextrose IV .[id number] [facility] Morphine Sulfate 2 mg 08/23/17 15:35 08/24/17 03:09 Morphine IVP 2 mg Q4H PRN Administration Pain, severe (8-10) Ondansetron HCl 4 mg 08/23/17 12:46 Zofran Inj IVP ONCE PRN Nausea/Vomiting Oxycodone/Acetaminophen 1 tab 08/23/17 12:46 08/24/17 06:39 Percocet 5/325 Mg Tab PO 08/26/17 12:47 1 tab Q4H PRN Administration Pain, moderate (4-7) Pantoprazole Sodium 40 mg 08/23/17 15:00 08/23/17 15:43 Protonix Inj IVP 40 mg DAILY CORA Administration Tramadol HCl 50 mg 08/23/17 12:49 Ultram PO Q6H PRN Pain, moderate (4-7) Zolpidem Tartrate 5 mg 08/23/17 12:49 08/23/17 22:08 Ambien PO 5 mg HS PRN Administration Sleep Protocol - Patient Studies Lab Studies: Lab Studies 08/24/17 08/24/17 08/24/17 Range/Units 05:15 05:15 01:55 WBC 5.7 6.4 (4.5-11.0) 10^3/ul RBC 3.12 L 2.98 L (3.5-6.1) 10^6/uL Hgb 8.9 L 8.6 L (12.0-16.0) g/dL Hct 26.7 L 25.4 L (36.0-48.0) % MCV 85.6 85.2 (80.0-105.0) fl MCH 28.5 28.9 (25.0-35.0) pg MCHC 33.3 33.9 (31.0-37.0) g/dl RDW 15.1 H 14.9 H (11.5-14.5) % Plt Count 166 145 (120.0-450.0) 10^3/uL MPV 9.6 8.6 (7.0-11.0) fl Gran % 70.4 H (50.0-68.0) % Lymph % (Auto) 20.1 L (22.0-35.0) % Pettis % (Auto) 9.1 H (1.0-6.0) % Eos % (Auto) 0.4 L (1.5-5.0) % Baso % (Auto) 0.0 (0.0-3.0) % Gran # 4.02 (1.4-6.5) Lymph # (Auto) 1.2 (1.2-3.4) Pettis # (Auto) 0.5 (0.1-0.6) Eos # (Auto) 0.0 (0.0-0.7) Baso # (Auto) 0.00 (0.0-2.0) K/mm3 PT (9.4-12.5) SECONDS INR (0.93-1.08) APTT (25.1-36.5) Seconds pCO2 (35-45) mm/Hg pO2 (30-55) mm/Hg HCO3 (21-28) mmol/L ABG pH (7.35-7.45) ABG Total CO2 (22-28) mmol.L ABG O2 Saturation (95-98) % ABG Base Excess (-2.0-3.0) mmol/L ABG Potassium (3.6-5.2) mmol/L VBG pH (7.32-7.43) VBG pCO2 (40-60) VBG HCO3 (21-28) mmol/l VBG Total CO2 (22-28) mmol.L VBG O2 Sat (Calc) (40-65) % VBG Base Excess (0.0-2.0) mmol/L VBG Potassium (3.6-5.2) mmol/L Glucose (65-105) mg/dl Lactate (0.7-2.1) mmol/L FiO2 % Sodium 141 (132-148) mmol/L Potassium 3.4 L (3.6-5.0) mmol/L Chloride 109 H (98-107) mmol/L Carbon Dioxide 24 (21-33) mmol/L Anion Gap 11 (10-20) BUN 8 (7-21) mg/dL Creatinine 0.7 (0.7-1.2) mg/dl Est GFR ( Amer) > 60 Est GFR (Non-Af Amer) > 60 Random Glucose 93 (70-110) mg/dL Calcium 8.5 (8.4-10.5) mg/dL Troponin I ng/mL Arterial Blood Potassium (3.6-5.2) mmol/L Venous Blood Potassium (3.6-5.2) mmol/L Blood Type Blood Type Confirm Antibody Screen Crossmatch BBK History Checked 08/23/17 08/23/17 08/23/17 Range/Units 22:25 22:25 22:25 WBC 6.5 (4.5-11.0) 10^3/ul RBC 3.12 L (3.5-6.1) 10^6/uL Hgb 9.1 L D (12.0-16.0) g/dL Hct 26.9 L (36.0-48.0) % MCV 86.2 (80.0-105.0) fl MCH 29.2 (25.0-35.0) pg MCHC 33.8 (31.0-37.0) g/dl RDW 14.9 H (11.5-14.5) % Plt Count 129 (120.0-450.0) 10^3/uL MPV 9.2 (7.0-11.0) fl Gran % (50.0-68.0) % Lymph % (Auto) (22.0-35.0) % Pettis % (Auto) (1.0-6.0) % Eos % (Auto) (1.5-5.0) % Baso % (Auto) (0.0-3.0) % Gran # (1.4-6.5) Lymph # (Auto) (1.2-3.4) Pettis # (Auto) (0.1-0.6) Eos # (Auto) (0.0-0.7) Baso # (Auto) (0.0-2.0) K/mm3 PT 11.8 (9.4-12.5) SECONDS INR 1.03 (0.93-1.08) APTT 27.8 (25.1-36.5) Seconds pCO2 (35-45) mm/Hg pO2 31 (30-55) mm/Hg HCO3 (21-28) mmol/L ABG pH (7.35-7.45) ABG Total CO2 (22-28) mmol.L ABG O2 Saturation (95-98) % ABG Base Excess (-2.0-3.0) mmol/L ABG Potassium (3.6-5.2) mmol/L VBG pH 7.39 (7.32-7.43) VBG pCO2 37.0 L (40-60) VBG HCO3 22.4 (21-28) mmol/l VBG Total CO2 23.5 (22-28) mmol.L VBG O2 Sat (Calc) 71.5 H (40-65) % VBG Base Excess -2.2 L (0.0-2.0) mmol/L VBG Potassium 3.6 (3.6-5.2) mmol/L Glucose 102 (65-105) mg/dl Lactate 1.0 (0.7-2.1) mmol/L FiO2 21.0 % Sodium 141.0 (132-148) mmol/L Potassium (3.6-5.0) mmol/L Chloride 112.0 H (98-107) mmol/L Carbon Dioxide (21-33) mmol/L Anion Gap (10-20) BUN (7-21) mg/dL Creatinine (0.7-1.2) mg/dl Est GFR ( Amer) Est GFR (Non-Af Amer) Random Glucose (70-110) mg/dL Calcium (8.4-10.5) mg/dL Troponin I ng/mL Arterial Blood Potassium (3.6-5.2) mmol/L Venous Blood Potassium 3.6 (3.6-5.2) mmol/L Blood Type Blood Type Confirm Antibody Screen Crossmatch BBK History Checked 08/23/17 08/23/17 08/23/17 Range/Units 15:30 14:40 14:15 WBC (4.5-11.0) 10^3/ul RBC (3.5-6.1) 10^6/uL Hgb (12.0-16.0) g/dL Hct (36.0-48.0) % MCV (80.0-105.0) fl MCH (25.0-35.0) pg MCHC (31.0-37.0) g/dl RDW (11.5-14.5) % Plt Count (120.0-450.0) 10^3/uL MPV (7.0-11.0) fl Gran % (50.0-68.0) % Lymph % (Auto) (22.0-35.0) % Pettis % (Auto) (1.0-6.0) % Eos % (Auto) (1.5-5.0) % Baso % (Auto) (0.0-3.0) % Gran # (1.4-6.5) Lymph # (Auto) (1.2-3.4) Pettis # (Auto) (0.1-0.6) Eos # (Auto) (0.0-0.7) Baso # (Auto) (0.0-2.0) K/mm3 PT (9.4-12.5) SECONDS INR (0.93-1.08) APTT (25.1-36.5) Seconds pCO2 32 L (35-45) mm/Hg pO2 75.0 L (30-55) mm/Hg HCO3 17.7 L (21-28) mmol/L ABG pH 7.35 (7.35-7.45) ABG Total CO2 18.7 L (22-28) mmol.L ABG O2 Saturation 97.8 (95-98) % ABG Base Excess -6.8 L (-2.0-3.0) mmol/L ABG Potassium 3.5 L (3.6-5.2) mmol/L VBG pH (7.32-7.43) VBG pCO2 (40-60) VBG HCO3 (21-28) mmol/l VBG Total CO2 (22-28) mmol.L VBG O2 Sat (Calc) (40-65) % VBG Base Excess (0.0-2.0) mmol/L VBG Potassium (3.6-5.2) mmol/L Glucose 112 H (65-105) mg/dl Lactate 0.9 (0.7-2.1) mmol/L FiO2 21.0 % Sodium 139.0 (132-148) mmol/L Potassium (3.6-5.0) mmol/L Chloride 117.0 H (98-107) mmol/L Carbon Dioxide (21-33) mmol/L Anion Gap (10-20) BUN (7-21) mg/dL Creatinine (0.7-1.2) mg/dl Est GFR ( Amer) Est GFR (Non-Af Amer) Random Glucose (70-110) mg/dL Calcium (8.4-10.5) mg/dL Troponin I < 0.01 ng/mL Arterial Blood Potassium 3.5 L (3.6-5.2) mmol/L Venous Blood Potassium (3.6-5.2) mmol/L Blood Type Blood Type Confirm A POSITIVE Antibody Screen Crossmatch BBK History Checked 08/23/17 08/23/17 08/23/17 Range/Units 14:15 14:15 14:15 WBC (4.5-11.0) 10^3/ul RBC (3.5-6.1) 10^6/uL Hgb (12.0-16.0) g/dL Hct (36.0-48.0) % MCV (80.0-105.0) fl MCH (25.0-35.0) pg MCHC (31.0-37.0) g/dl RDW (11.5-14.5) % Plt Count (120.0-450.0) 10^3/uL MPV (7.0-11.0) fl Gran % (50.0-68.0) % Lymph % (Auto) (22.0-35.0) % Pettis % (Auto) (1.0-6.0) % Eos % (Auto) (1.5-5.0) % Baso % (Auto) (0.0-3.0) % Gran # (1.4-6.5) Lymph # (Auto) (1.2-3.4) Pettis # (Auto) (0.1-0.6) Eos # (Auto) (0.0-0.7) Baso # (Auto) (0.0-2.0) K/mm3 PT 13.1 H (9.4-12.5) SECONDS INR 1.15 H (0.93-1.08) APTT 51.0 H (25.1-36.5) Seconds pCO2 (35-45) mm/Hg pO2 29 L (30-55) mm/Hg HCO3 (21-28) mmol/L ABG pH (7.35-7.45) ABG Total CO2 (22-28) mmol.L ABG O2 Saturation (95-98) % ABG Base Excess (-2.0-3.0) mmol/L ABG Potassium (3.6-5.2) mmol/L VBG pH 7.24 L (7.32-7.43) VBG pCO2 45.0 (40-60) VBG HCO3 19.3 L (21-28) mmol/l VBG Total CO2 20.7 L (22-28) mmol.L VBG O2 Sat (Calc) 59.7 (40-65) % VBG Base Excess -8.0 L (0.0-2.0) mmol/L VBG Potassium 3.8 (3.6-5.2) mmol/L Glucose 119 H (65-105) mg/dl Lactate 1.2 (0.7-2.1) mmol/L FiO2 21.0 % Sodium 142.0 (132-148) mmol/L Potassium (3.6-5.0) mmol/L Chloride 118.0 H (98-107) mmol/L Carbon Dioxide (21-33) mmol/L Anion Gap (10-20) BUN (7-21) mg/dL Creatinine (0.7-1.2) mg/dl Est GFR ( Amer) Est GFR (Non-Af Amer) Random Glucose (70-110) mg/dL Calcium (8.4-10.5) mg/dL Troponin I ng/mL Arterial Blood Potassium (3.6-5.2) mmol/L Venous Blood Potassium 3.8 (3.6-5.2) mmol/L Blood Type A POSITIVE Blood Type Confirm Antibody Screen Negative Crossmatch See Detail BBK History Checked No verified bt 08/23/17 08/23/17 08/23/17 Range/Units 14:15 07:25 07:25 WBC 6.6 D (4.5-11.0) 10^3/ul RBC 2.31 L (3.5-6.1) 10^6/uL Hgb 6.6 L* D (12.0-16.0) g/dL Hct 20.4 L* (36.0-48.0) % MCV 88.3 (80.0-105.0) fl MCH 28.6 (25.0-35.0) pg MCHC 32.4 (31.0-37.0) g/dl RDW 16.5 H (11.5-14.5) % Plt Count 193 (120.0-450.0) 10^3/uL MPV 10.4 (7.0-11.0) fl Gran % (50.0-68.0) % Lymph % (Auto) (22.0-35.0) % Pettis % (Auto) (1.0-6.0) % Eos % (Auto) (1.5-5.0) % Baso % (Auto) (0.0-3.0) % Gran # (1.4-6.5) Lymph # (Auto) (1.2-3.4) Pettis # (Auto) (0.1-0.6) Eos # (Auto) (0.0-0.7) Baso # (Auto) (0.0-2.0) K/mm3 PT 10.9 (9.4-12.5) SECONDS INR 0.95 (0.93-1.08) APTT 30.1 (25.1-36.5) Seconds pCO2 (35-45) mm/Hg pO2 (30-55) mm/Hg HCO3 (21-28) mmol/L ABG pH (7.35-7.45) ABG Total CO2 (22-28) mmol.L ABG O2 Saturation (95-98) % ABG Base Excess (-2.0-3.0) mmol/L ABG Potassium (3.6-5.2) mmol/L VBG pH (7.32-7.43) VBG pCO2 (40-60) VBG HCO3 (21-28) mmol/l VBG Total CO2 (22-28) mmol.L VBG O2 Sat (Calc) (40-65) % VBG Base Excess (0.0-2.0) mmol/L VBG Potassium (3.6-5.2) mmol/L Glucose (65-105) mg/dl Lactate (0.7-2.1) mmol/L FiO2 % Sodium 147 (132-148) mmol/L Potassium 3.9 (3.6-5.0) mmol/L Chloride 110 H (98-107) mmol/L Carbon Dioxide 26 (21-33) mmol/L Anion Gap 14 (10-20) BUN 17 (7-21) mg/dL Creatinine 1.0 (0.7-1.2) mg/dl Est GFR ( Amer) > 60 Est GFR (Non-Af Amer) 55 Random Glucose 93 (70-110) mg/dL Calcium 9.3 (8.4-10.5) mg/dL Troponin I ng/mL Arterial Blood Potassium (3.6-5.2) mmol/L Venous Blood Potassium (3.6-5.2) mmol/L Blood Type Blood Type Confirm Antibody Screen Crossmatch BBK History Checked Laboratory Results - last 24 hr 08/23/17 08/23/17 08/23/17 07:25 07:25 14:15 WBC 6.6 D RBC 2.31 L Hgb 6.6 L* D Hct 20.4 L* MCV 88.3 MCH 28.6 MCHC 32.4 RDW 16.5 H Plt Count 193 MPV 10.4 Gran % Lymph % (Auto) Pettis % (Auto) Eos % (Auto) Baso % (Auto) Gran # Lymph # (Auto) Pettis # (Auto) Eos # (Auto) Baso # (Auto) PT 10.9 INR 0.95 APTT 30.1 pCO2 pO2 HCO3 ABG pH ABG Total CO2 ABG O2 Saturation ABG Base Excess ABG Potassium VBG pH VBG pCO2 VBG HCO3 VBG Total CO2 VBG O2 Sat (Calc) VBG Base Excess VBG Potassium Glucose Lactate FiO2 Sodium 147 Potassium 3.9 Chloride 110 H Carbon Dioxide 26 Anion Gap 14 BUN 17 Creatinine 1.0 Est GFR ( Amer) > 60 Est GFR (Non-Af Amer) 55 Random Glucose 93 Calcium 9.3 Troponin I Arterial Blood Potassium Venous Blood Potassium Blood Type Blood Type Confirm Antibody Screen Crossmatch BBK History Checked 08/23/17 08/23/17 08/23/17 14:15 14:15 14:15 WBC RBC Hgb Hct MCV MCH MCHC RDW Plt Count MPV Gran % Lymph % (Auto) Pettis % (Auto) Eos % (Auto) Baso % (Auto) Gran # Lymph # (Auto) Pettis # (Auto) Eos # (Auto) Baso # (Auto) PT 13.1 H INR 1.15 H APTT 51.0 H pCO2 pO2 29 L HCO3 ABG pH ABG Total CO2 ABG O2 Saturation ABG Base Excess ABG Potassium VBG pH 7.24 L VBG pCO2 45.0 VBG HCO3 19.3 L VBG Total CO2 20.7 L VBG O2 Sat (Calc) 59.7 VBG Base Excess -8.0 L VBG Potassium 3.8 Glucose 119 H Lactate 1.2 FiO2 21.0 Sodium 142.0 Potassium Chloride 118.0 H Carbon Dioxide Anion Gap BUN Creatinine Est GFR ( Amer) Est GFR (Non-Af Amer) Random Glucose Calcium Troponin I Arterial Blood Potassium Venous Blood Potassium 3.8 Blood Type A POSITIVE Blood Type Confirm Antibody Screen Negative Crossmatch See Detail BBK History Checked No verified bt 08/23/17 08/23/17 08/23/17 14:15 14:40 15:30 WBC RBC Hgb Hct MCV MCH MCHC RDW Plt Count MPV Gran % Lymph % (Auto) Pettis % (Auto) Eos % (Auto) Baso % (Auto) Gran # Lymph # (Auto) Pettis # (Auto) Eos # (Auto) Baso # (Auto) PT INR APTT pCO2 32 L pO2 75.0 L HCO3 17.7 L ABG pH 7.35 ABG Total CO2 18.7 L ABG O2 Saturation 97.8 ABG Base Excess -6.8 L ABG Potassium 3.5 L VBG pH VBG pCO2 VBG HCO3 VBG Total CO2 VBG O2 Sat (Calc) VBG Base Excess VBG Potassium Glucose 112 H Lactate 0.9 FiO2 21.0 Sodium 139.0 Potassium Chloride 117.0 H Carbon Dioxide Anion Gap BUN Creatinine Est GFR ( Amer) Est GFR (Non-Af Amer) Random Glucose Calcium Troponin I < 0.01 Arterial Blood Potassium 3.5 L Venous Blood Potassium Blood Type Blood Type Confirm A POSITIVE Antibody Screen Crossmatch BBK History Checked 08/23/17 08/23/17 08/23/17 22:25 22:25 22:25 WBC 6.5 RBC 3.12 L Hgb 9.1 L D Hct 26.9 L MCV 86.2 MCH 29.2 MCHC 33.8 RDW 14.9 H Plt Count 129 MPV 9.2 Gran % Lymph % (Auto) Pettis % (Auto) Eos % (Auto) Baso % (Auto) Gran # Lymph # (Auto) Pettis # (Auto) Eos # (Auto) Baso # (Auto) PT 11.8 INR 1.03 APTT 27.8 pCO2 pO2 31 HCO3 ABG pH ABG Total CO2 ABG O2 Saturation ABG Base Excess ABG Potassium VBG pH 7.39 VBG pCO2 37.0 L VBG HCO3 22.4 VBG Total CO2 23.5 VBG O2 Sat (Calc) 71.5 H VBG Base Excess -2.2 L VBG Potassium 3.6 Glucose 102 Lactate 1.0 FiO2 21.0 Sodium 141.0 Potassium Chloride 112.0 H Carbon Dioxide Anion Gap BUN Creatinine Est GFR ( Amer) Est GFR (Non-Af Amer) Random Glucose Calcium Troponin I Arterial Blood Potassium Venous Blood Potassium 3.6 Blood Type Blood Type Confirm Antibody Screen Crossmatch BBK History Checked 08/24/17 08/24/17 08/24/17 01:55 05:15 05:15 WBC 6.4 5.7 RBC 2.98 L 3.12 L Hgb 8.6 L 8.9 L Hct 25.4 L 26.7 L MCV 85.2 85.6 MCH 28.9 28.5 MCHC 33.9 33.3 RDW 14.9 H 15.1 H Plt Count 145 166 MPV 8.6 9.6 Gran % 70.4 H Lymph % (Auto) 20.1 L Pettis % (Auto) 9.1 H Eos % (Auto) 0.4 L Baso % (Auto) 0.0 Gran # 4.02 Lymph # (Auto) 1.2 Pettis # (Auto) 0.5 Eos # (Auto) 0.0 Baso # (Auto) 0.00 PT INR APTT pCO2 pO2 HCO3 ABG pH ABG Total CO2 ABG O2 Saturation ABG Base Excess ABG Potassium VBG pH VBG pCO2 VBG HCO3 VBG Total CO2 VBG O2 Sat (Calc) VBG Base Excess VBG Potassium Glucose Lactate FiO2 Sodium 141 Potassium 3.4 L Chloride 109 H Carbon Dioxide 24 Anion Gap 11 BUN 8 Creatinine 0.7 Est GFR ( Amer) > 60 Est GFR (Non-Af Amer) > 60 Random Glucose 93 Calcium 8.5 Troponin I Arterial Blood Potassium Venous Blood Potassium Blood Type Blood Type Confirm Antibody Screen Crossmatch BBK History Checked EKG/Cardiology Studies: Cardiology / EKG Studies 08/23/17 14:05 EKG [ELECTROCARDIOGRAM] Stat Comment: Reason For Exam: POST ANGIO BLEED PRE OP:: N Does Patient Have a Pacemaker?: No Review of Systems - Review of Systems All systems: reviewed and no additional remarkable complaints except (as per HPI ) Critical Care Progress Note - Extremities/Vascular Does the Patient have a Nogueira Catheter?: Yes Does the Patient need a Nogueira Catheter?: Yes - Prophylaxis GI Prophylaxis GI: PPI - Prophylaxis DVT Prophylaxis DVT: SCDs - Nutrition Nutrition: Nutrition Category Date Time Status Heart Healthy Diet [DIET] Diets 08/23/17 Lunch Ordered Assessment/Plan - Assessment and Plan (Free Text) Assessment: 72 yo female with a PMH of PVD, colorectal cancer s/p chemo and radiation therapy, uterine cancer s/p hysterectomy, diverticulitis, emphysema, GERD and lupus who presented to ICU from vascular lab for 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 Patient was treated with stent graft, however, became pale and hypotensive and started complaining of abdominal pain and required ICU care. follow up CTA abdomen showed extensive extravasation of contrast into retroperitoneal space on R from recent rupture and Hgb dropped to 6.6 from 9.9. Patient was transfused 2 units of pRBC, 2 units of FFP, and 1 unit of platelets. Patient is currently hemodynamically stable, and is awake and alert at her normal baseline. Pulses are present bilaterally in lower extremities. Pain has been improving and patient denies n/v/d and is tolerating PO intake. The patient is cleared for transfer from ICU. Plan: Neuro: - is alert and oriented at baseline - cont to monitor for any signs of mental status change - Valium and Ambien PRN home orders - Benadryl HS CV: - has been normotensive and hemodynamically stable - maintain MAP > 65 - currently not requiring any fluids - cont Lipitor - Surgery on board and agree with plan - continue to monitor VS for any changes Pulm: - O2 sat are adequate > 90% on RA - stable - duoneb cora for COPD GI: - no peritoneal signs or expanding hematomas on exam - no reported n/v; is tolerating PO intake - HHD ordered - zofran PRN was not needed Renal: - bicarb was never administered due to normalization of pH - urine output was sufficient - continue to monitor I/O - nogueira catheter inserted Heme/Onc: - s/p 2units pRBC, 2units FFP and 1unit platelets - H/H is stable after administration of blood products; will monitor daily while inpatient - no overt signs of bleeding; continue to monitor - hx of uterine and colorectal CA with proper outpatient followup; no acute changes. Patient also had removal of R tunneled IJ access port 08/23 ID: - no signs of infection at this time; will continue to monitor - maintain normothermia Endo: - maintain euglycemia Diet: HHD GI ppx: protonix DVT ppx: SCDs Dispo: Patient is currently hemodynamically stable, and is awake and alert at her normal baseline. Pulses are present bilaterally in lower extremities. Pain has been improving and patient denies n/v/d and is tolerating PO intake. The patient is cleared for transfer from ICU. Patient was seen, examined and discussed with attending, Dr. Nicole Rubio PGY1 Pager # [phone] <Josep Rivera - Last Filed: 08/24/17 14:30> CCU Objective - Vital Signs / Intake & Output Intake and Output (Last 8hrs): Intake & Output 08/23/17 08/24/17 08/24/17 22:59 06:59 14:59 Intake Total 1667 568 Output Total 1999 1999 Balance -333 -1432 Weight 115 lb Intake: IV 40 50 Left Wrist 10 Right Antecubital 30 50 Oral 0 Blood Product 1607 518 Red Blood Cells Cpd As1 325 Lr Unit [id number] Red Blood Cells Cpd As1 325 Lr Unit [id number] Other 20 Red Blood Cells Cpd As1 20 Lr Unit [id number] Output: Urine 1999 1999 Urethral (Nogueira) 1999 1999 Other: Voiding Method Indwelling Catheter # Bowel Movements 0 - Medications Active Medications: Active Medications Generic Name Dose Route Start Last Admin Trade Name Freq PRN Reason Stop Dose Admin Albuterol/Ipratropium 3 ml 08/23/17 20:00 08/24/17 14:00 Duoneb 3 Mg/0.5 Mg (3 Ml) Ud IH 3 ml [id number] CORA Administration Atorvastatin Calcium 20 mg 08/24/17 10:00 08/24/17 10:11 Lipitor PO 20 mg DAILY CORA Administration Diazepam 5 mg 08/23/17 12:49 Valium PO DAILY PRN Anxiety Protocol Diphenhydramine HCl 50 mg 08/23/17 22:00 08/23/17 22:08 Benadryl PO 50 mg HS CORA Administration Diphenoxylate HCl/Atropine 2.5 tab 08/23/17 12:49 Lomotil 0.025-2.5 Mg Tablet PO Q6H PRN Diarrhea Sodium Bicarbonate 150 meq/ 1,150 mls @ 100 mls/hr 08/23/17 15:30 Dextrose IV .[id number] [facility] Morphine Sulfate 2 mg 08/23/17 15:35 08/24/17 03:09 Morphine IVP 2 mg Q4H PRN Administration Pain, severe (8-10) Ondansetron HCl 4 mg 08/23/17 12:46 Zofran Inj IVP ONCE PRN Nausea/Vomiting Oxycodone/Acetaminophen 1 tab 08/23/17 12:46 08/24/17 13:11 Percocet 5/325 Mg Tab PO 08/26/17 12:47 1 tab Q4H PRN Administration Pain, moderate (4-7) Pantoprazole Sodium 40 mg 08/23/17 15:00 08/24/17 10:11 Protonix Inj IVP 40 mg DAILY CORA Administration Tramadol HCl 50 mg 08/23/17 12:49 Ultram PO Q6H PRN Pain, moderate (4-7) Zolpidem Tartrate 5 mg 08/23/17 12:49 08/23/17 22:08 Ambien PO 5 mg HS PRN Administration Sleep Protocol - Patient Studies Lab Studies: Lab Studies 08/24/17 08/24/17 08/24/17 Range/Units 05:15 05:15 01:55 WBC 5.7 6.4 (4.5-11.0) 10^3/ul RBC 3.12 L 2.98 L (3.5-6.1) 10^6/uL Hgb 8.9 L 8.6 L (12.0-16.0) g/dL Hct 26.7 L 25.4 L (36.0-48.0) % MCV 85.6 85.2 (80.0-105.0) fl MCH 28.5 28.9 (25.0-35.0) pg MCHC 33.3 33.9 (31.0-37.0) g/dl RDW 15.1 H 14.9 H (11.5-14.5) % Plt Count 166 145 (120.0-450.0) 10^3/uL MPV 9.6 8.6 (7.0-11.0) fl Gran % 70.4 H (50.0-68.0) % Lymph % (Auto) 20.1 L (22.0-35.0) % Pettis % (Auto) 9.1 H (1.0-6.0) % Eos % (Auto) 0.4 L (1.5-5.0) % Baso % (Auto) 0.0 (0.0-3.0) % Gran # 4.02 (1.4-6.5) Lymph # (Auto) 1.2 (1.2-3.4) Pettis # (Auto) 0.5 (0.1-0.6) Eos # (Auto) 0.0 (0.0-0.7) Baso # (Auto) 0.00 (0.0-2.0) K/mm3 PT (9.4-12.5) SECONDS INR (0.93-1.08) APTT (25.1-36.5) Seconds pCO2 (35-45) mm/Hg pO2 (30-55) mm/Hg HCO3 (21-28) mmol/L ABG pH (7.35-7.45) ABG Total CO2 (22-28) mmol.L ABG O2 Saturation (95-98) % ABG Base Excess (-2.0-3.0) mmol/L ABG Potassium (3.6-5.2) mmol/L VBG pH (7.32-7.43) VBG pCO2 (40-60) VBG HCO3 (21-28) mmol/l VBG Total CO2 (22-28) mmol.L VBG O2 Sat (Calc) (40-65) % VBG Base Excess (0.0-2.0) mmol/L VBG Potassium (3.6-5.2) mmol/L Sodium 141 (132-148) mmol/L Chloride 109 H (98-107) mmol/L Glucose (65-105) mg/dl Lactate (0.7-2.1) mmol/L FiO2 % Potassium 3.4 L (3.6-5.0) mmol/L Carbon Dioxide 24 (21-33) mmol/L Anion Gap 11 (10-20) BUN 8 (7-21) mg/dL Creatinine 0.7 (0.7-1.2) mg/dl Est GFR ( Amer) > 60 Est GFR (Non-Af Amer) > 60 Random Glucose 93 (70-110) mg/dL Calcium 8.5 (8.4-10.5) mg/dL Troponin I ng/mL Arterial Blood Potassium (3.6-5.2) mmol/L Venous Blood Potassium (3.6-5.2) mmol/L Blood Type Blood Type Confirm Antibody Screen Crossmatch BBK History Checked 08/23/17 08/23/17 08/23/17 Range/Units 22:25 22:25 22:25 WBC 6.5 (4.5-11.0) 10^3/ul RBC 3.12 L (3.5-6.1) 10^6/uL Hgb 9.1 L D (12.0-16.0) g/dL Hct 26.9 L (36.0-48.0) % MCV 86.2 (80.0-105.0) fl MCH 29.2 (25.0-35.0) pg MCHC 33.8 (31.0-37.0) g/dl RDW 14.9 H (11.5-14.5) % Plt Count 129 (120.0-450.0) 10^3/uL MPV 9.2 (7.0-11.0) fl Gran % (50.0-68.0) % Lymph % (Auto) (22.0-35.0) % Pettis % (Auto) (1.0-6.0) % Eos % (Auto) (1.5-5.0) % Baso % (Auto) (0.0-3.0) % Gran # (1.4-6.5) Lymph # (Auto) (1.2-3.4) Pettis # (Auto) (0.1-0.6) Eos # (Auto) (0.0-0.7) Baso # (Auto) (0.0-2.0) K/mm3 PT 11.8 (9.4-12.5) SECONDS INR 1.03 (0.93-1.08) APTT 27.8 (25.1-36.5) Seconds pCO2 (35-45) mm/Hg pO2 31 (30-55) mm/Hg HCO3 (21-28) mmol/L ABG pH (7.35-7.45) ABG Total CO2 (22-28) mmol.L ABG O2 Saturation (95-98) % ABG Base Excess (-2.0-3.0) mmol/L ABG Potassium (3.6-5.2) mmol/L VBG pH 7.39 (7.32-7.43) VBG pCO2 37.0 L (40-60) VBG HCO3 22.4 (21-28) mmol/l VBG Total CO2 23.5 (22-28) mmol.L VBG O2 Sat (Calc) 71.5 H (40-65) % VBG Base Excess -2.2 L (0.0-2.0) mmol/L VBG Potassium 3.6 (3.6-5.2) mmol/L Sodium 141.0 (132-148) mmol/L Chloride 112.0 H (98-107) mmol/L Glucose 102 (65-105) mg/dl Lactate 1.0 (0.7-2.1) mmol/L FiO2 21.0 % Potassium (3.6-5.0) mmol/L Carbon Dioxide (21-33) mmol/L Anion Gap (10-20) BUN (7-21) mg/dL Creatinine (0.7-1.2) mg/dl Est GFR ( Amer) Est GFR (Non-Af Amer) Random Glucose (70-110) mg/dL Calcium (8.4-10.5) mg/dL Troponin I ng/mL Arterial Blood Potassium (3.6-5.2) mmol/L Venous Blood Potassium 3.6 (3.6-5.2) mmol/L Blood Type Blood Type Confirm Antibody Screen Crossmatch BBK History Checked 08/23/17 08/23/17 08/23/17 Range/Units 15:30 14:40 14:15 WBC (4.5-11.0) 10^3/ul RBC (3.5-6.1) 10^6/uL Hgb (12.0-16.0) g/dL Hct (36.0-48.0) % MCV (80.0-105.0) fl MCH (25.0-35.0) pg MCHC (31.0-37.0) g/dl RDW (11.5-14.5) % Plt Count (120.0-450.0) 10^3/uL MPV (7.0-11.0) fl Gran % (50.0-68.0) % Lymph % (Auto) (22.0-35.0) % Pettis % (Auto) (1.0-6.0) % Eos % (Auto) (1.5-5.0) % Baso % (Auto) (0.0-3.0) % Gran # (1.4-6.5) Lymph # (Auto) (1.2-3.4) Pettis # (Auto) (0.1-0.6) Eos # (Auto) (0.0-0.7) Baso # (Auto) (0.0-2.0) K/mm3 PT (9.4-12.5) SECONDS INR (0.93-1.08) APTT (25.1-36.5) Seconds pCO2 32 L (35-45) mm/Hg pO2 75.0 L (30-55) mm/Hg HCO3 17.7 L (21-28) mmol/L ABG pH 7.35 (7.35-7.45) ABG Total CO2 18.7 L (22-28) mmol.L ABG O2 Saturation 97.8 (95-98) % ABG Base Excess -6.8 L (-2.0-3.0) mmol/L ABG Potassium 3.5 L (3.6-5.2) mmol/L VBG pH (7.32-7.43) VBG pCO2 (40-60) VBG HCO3 (21-28) mmol/l VBG Total CO2 (22-28) mmol.L VBG O2 Sat (Calc) (40-65) % VBG Base Excess (0.0-2.0) mmol/L VBG Potassium (3.6-5.2) mmol/L Sodium 139.0 (132-148) mmol/L Chloride 117.0 H (98-107) mmol/L Glucose 112 H (65-105) mg/dl Lactate 0.9 (0.7-2.1) mmol/L FiO2 21.0 % Potassium (3.6-5.0) mmol/L Carbon Dioxide (21-33) mmol/L Anion Gap (10-20) BUN (7-21) mg/dL Creatinine (0.7-1.2) mg/dl Est GFR ( Amer) Est GFR (Non-Af Amer) Random Glucose (70-110) mg/dL Calcium (8.4-10.5) mg/dL Troponin I < 0.01 ng/mL Arterial Blood Potassium 3.5 L (3.6-5.2) mmol/L Venous Blood Potassium (3.6-5.2) mmol/L Blood Type Blood Type Confirm A POSITIVE Antibody Screen Crossmatch BBK History Checked 08/23/17 08/23/17 08/23/17 Range/Units 14:15 14:15 14:15 WBC (4.5-11.0) 10^3/ul RBC (3.5-6.1) 10^6/uL Hgb (12.0-16.0) g/dL Hct (36.0-48.0) % MCV (80.0-105.0) fl MCH (25.0-35.0) pg MCHC (31.0-37.0) g/dl RDW (11.5-14.5) % Plt Count (120.0-450.0) 10^3/uL MPV (7.0-11.0) fl Gran % (50.0-68.0) % Lymph % (Auto) (22.0-35.0) % Pettis % (Auto) (1.0-6.0) % Eos % (Auto) (1.5-5.0) % Baso % (Auto) (0.0-3.0) % Gran # (1.4-6.5) Lymph # (Auto) (1.2-3.4) Pettis # (Auto) (0.1-0.6) Eos # (Auto) (0.0-0.7) Baso # (Auto) (0.0-2.0) K/mm3 PT 13.1 H (9.4-12.5) SECONDS INR 1.15 H (0.93-1.08) APTT 51.0 H (25.1-36.5) Seconds pCO2 (35-45) mm/Hg pO2 29 L (30-55) mm/Hg HCO3 (21-28) mmol/L ABG pH (7.35-7.45) ABG Total CO2 (22-28) mmol.L ABG O2 Saturation (95-98) % ABG Base Excess (-2.0-3.0) mmol/L ABG Potassium (3.6-5.2) mmol/L VBG pH 7.24 L (7.32-7.43) VBG pCO2 45.0 (40-60) VBG HCO3 19.3 L (21-28) mmol/l VBG Total CO2 20.7 L (22-28) mmol.L VBG O2 Sat (Calc) 59.7 (40-65) % VBG Base Excess -8.0 L (0.0-2.0) mmol/L VBG Potassium 3.8 (3.6-5.2) mmol/L Sodium 142.0 (132-148) mmol/L Chloride 118.0 H (98-107) mmol/L Glucose 119 H (65-105) mg/dl Lactate 1.2 (0.7-2.1) mmol/L FiO2 21.0 % Potassium (3.6-5.0) mmol/L Carbon Dioxide (21-33) mmol/L Anion Gap (10-20) BUN (7-21) mg/dL Creatinine (0.7-1.2) mg/dl Est GFR ( Amer) Est GFR (Non-Af Amer) Random Glucose (70-110) mg/dL Calcium (8.4-10.5) mg/dL Troponin I ng/mL Arterial Blood Potassium (3.6-5.2) mmol/L Venous Blood Potassium 3.8 (3.6-5.2) mmol/L Blood Type A POSITIVE Blood Type Confirm Antibody Screen Negative Crossmatch See Detail BBK History Checked No verified bt 08/23/17 Range/Units 14:15 WBC 6.6 D (4.5-11.0) 10^3/ul RBC 2.31 L (3.5-6.1) 10^6/uL Hgb 6.6 L* D (12.0-16.0) g/dL Hct 20.4 L* (36.0-48.0) % MCV 88.3 (80.0-105.0) fl MCH 28.6 (25.0-35.0) pg MCHC 32.4 (31.0-37.0) g/dl RDW 16.5 H (11.5-14.5) % Plt Count 193 (120.0-450.0) 10^3/uL MPV 10.4 (7.0-11.0) fl Gran % (50.0-68.0) % Lymph % (Auto) (22.0-35.0) % Pettis % (Auto) (1.0-6.0) % Eos % (Auto) (1.5-5.0) % Baso % (Auto) (0.0-3.0) % Gran # (1.4-6.5) Lymph # (Auto) (1.2-3.4) Pettis # (Auto) (0.1-0.6) Eos # (Auto) (0.0-0.7) Baso # (Auto) (0.0-2.0) K/mm3 PT (9.4-12.5) SECONDS INR (0.93-1.08) APTT (25.1-36.5) Seconds pCO2 (35-45) mm/Hg pO2 (30-55) mm/Hg HCO3 (21-28) mmol/L ABG pH (7.35-7.45) ABG Total CO2 (22-28) mmol.L ABG O2 Saturation (95-98) % ABG Base Excess (-2.0-3.0) mmol/L ABG Potassium (3.6-5.2) mmol/L VBG pH (7.32-7.43) VBG pCO2 (40-60) VBG HCO3 (21-28) mmol/l VBG Total CO2 (22-28) mmol.L VBG O2 Sat (Calc) (40-65) % VBG Base Excess (0.0-2.0) mmol/L VBG Potassium (3.6-5.2) mmol/L Sodium (132-148) mmol/L Chloride (98-107) mmol/L Glucose (65-105) mg/dl Lactate (0.7-2.1) mmol/L FiO2 % Potassium (3.6-5.0) mmol/L Carbon Dioxide (21-33) mmol/L Anion Gap (10-20) BUN (7-21) mg/dL Creatinine (0.7-1.2) mg/dl Est GFR ( Amer) Est GFR (Non-Af Amer) Random Glucose (70-110) mg/dL Calcium (8.4-10.5) mg/dL Troponin I ng/mL Arterial Blood Potassium (3.6-5.2) mmol/L Venous Blood Potassium (3.6-5.2) mmol/L Blood Type Blood Type Confirm Antibody Screen Crossmatch BBK History Checked Laboratory Results - last 24 hr 08/23/17 08/23/17 08/23/17 14:15 14:15 14:15 WBC 6.6 D RBC 2.31 L Hgb 6.6 L* D Hct 20.4 L* MCV 88.3 MCH 28.6 MCHC 32.4 RDW 16.5 H Plt Count 193 MPV 10.4 Gran % Lymph % (Auto) Pettis % (Auto) Eos % (Auto) Baso % (Auto) Gran # Lymph # (Auto) Pettis # (Auto) Eos # (Auto) Baso # (Auto) PT 13.1 H INR 1.15 H APTT 51.0 H pCO2 pO2 HCO3 ABG pH ABG Total CO2 ABG O2 Saturation ABG Base Excess ABG Potassium VBG pH VBG pCO2 VBG HCO3 VBG Total CO2 VBG O2 Sat (Calc) VBG Base Excess VBG Potassium Sodium Chloride Glucose Lactate FiO2 Potassium Carbon Dioxide Anion Gap BUN Creatinine Est GFR ( Amer) Est GFR (Non-Af Amer) Random Glucose Calcium Troponin I Arterial Blood Potassium Venous Blood Potassium Blood Type A POSITIVE Blood Type Confirm Antibody Screen Negative Crossmatch See Detail BBK History Checked No verified bt 08/23/17 08/23/17 08/23/17 14:15 14:15 14:40 WBC RBC Hgb Hct MCV MCH MCHC RDW Plt Count MPV Gran % Lymph % (Auto) Pettis % (Auto) Eos % (Auto) Baso % (Auto) Gran # Lymph # (Auto) Pettis # (Auto) Eos # (Auto) Baso # (Auto) PT INR APTT pCO2 pO2 29 L HCO3 ABG pH ABG Total CO2 ABG O2 Saturation ABG Base Excess ABG Potassium VBG pH 7.24 L VBG pCO2 45.0 VBG HCO3 19.3 L VBG Total CO2 20.7 L VBG O2 Sat (Calc) 59.7 VBG Base Excess -8.0 L VBG Potassium 3.8 Sodium 142.0 Chloride 118.0 H Glucose 119 H Lactate 1.2 FiO2 21.0 Potassium Carbon Dioxide Anion Gap BUN Creatinine Est GFR ( Amer) Est GFR (Non-Af Amer) Random Glucose Calcium Troponin I < 0.01 Arterial Blood Potassium Venous Blood Potassium 3.8 Blood Type Blood Type Confirm A POSITIVE Antibody Screen Crossmatch BBK History Checked 08/23/17 08/23/17 08/23/17 15:30 22:25 22:25 WBC RBC Hgb Hct MCV MCH MCHC RDW Plt Count MPV Gran % Lymph % (Auto) Pettis % (Auto) Eos % (Auto) Baso % (Auto) Gran # Lymph # (Auto) Pettis # (Auto) Eos # (Auto) Baso # (Auto) PT 11.8 INR 1.03 APTT 27.8 pCO2 32 L pO2 75.0 L 31 HCO3 17.7 L ABG pH 7.35 ABG Total CO2 18.7 L ABG O2 Saturation 97.8 ABG Base Excess -6.8 L ABG Potassium 3.5 L VBG pH 7.39 VBG pCO2 37.0 L VBG HCO3 22.4 VBG Total CO2 23.5 VBG O2 Sat (Calc) 71.5 H VBG Base Excess -2.2 L VBG Potassium 3.6 Sodium 139.0 141.0 Chloride 117.0 H 112.0 H Glucose 112 H 102 Lactate 0.9 1.0 FiO2 21.0 21.0 Potassium Carbon Dioxide Anion Gap BUN Creatinine Est GFR ( Amer) Est GFR (Non-Af Amer) Random Glucose Calcium Troponin I Arterial Blood Potassium 3.5 L Venous Blood Potassium 3.6 Blood Type Blood Type Confirm Antibody Screen Crossmatch BBK History Checked 08/23/17 08/24/17 08/24/17 22:25 01:55 05:15 WBC 6.5 6.4 RBC 3.12 L 2.98 L Hgb 9.1 L D 8.6 L Hct 26.9 L 25.4 L MCV 86.2 85.2 MCH 29.2 28.9 MCHC 33.8 33.9 RDW 14.9 H 14.9 H Plt Count 129 145 MPV 9.2 8.6 Gran % Lymph % (Auto) Pettis % (Auto) Eos % (Auto) Baso % (Auto) Gran # Lymph # (Auto) Pettis # (Auto) Eos # (Auto) Baso # (Auto) PT INR APTT pCO2 pO2 HCO3 ABG pH ABG Total CO2 ABG O2 Saturation ABG Base Excess ABG Potassium VBG pH VBG pCO2 VBG HCO3 VBG Total CO2 VBG O2 Sat (Calc) VBG Base Excess VBG Potassium Sodium 141 Chloride 109 H Glucose Lactate FiO2 Potassium 3.4 L Carbon Dioxide 24 Anion Gap 11 BUN 8 Creatinine 0.7 Est GFR ( Amer) > 60 Est GFR (Non-Af Amer) > 60 Random Glucose 93 Calcium 8.5 Troponin I Arterial Blood Potassium Venous Blood Potassium Blood Type Blood Type Confirm Antibody Screen Crossmatch BBK History Checked 08/24/17 05:15 WBC 5.7 RBC 3.12 L Hgb 8.9 L Hct 26.7 L MCV 85.6 MCH 28.5 MCHC 33.3 RDW 15.1 H Plt Count 166 MPV 9.6 Gran % 70.4 H Lymph % (Auto) 20.1 L Pettis % (Auto) 9.1 H Eos % (Auto) 0.4 L Baso % (Auto) 0.0 Gran # 4.02 Lymph # (Auto) 1.2 Pettis # (Auto) 0.5 Eos # (Auto) 0.0 Baso # (Auto) 0.00 PT INR APTT pCO2 pO2 HCO3 ABG pH ABG Total CO2 ABG O2 Saturation ABG Base Excess ABG Potassium VBG pH VBG pCO2 VBG HCO3 VBG Total CO2 VBG O2 Sat (Calc) VBG Base Excess VBG Potassium Sodium Chloride Glucose Lactate FiO2 Potassium Carbon Dioxide Anion Gap BUN Creatinine Est GFR ( Amer) Est GFR (Non-Af Amer) Random Glucose Calcium Troponin I Arterial Blood Potassium Venous Blood Potassium Blood Type Blood Type Confirm Antibody Screen Crossmatch BBK History Checked EKG/Cardiology Studies: Cardiology / EKG Studies 08/23/17 14:05 EKG [ELECTROCARDIOGRAM] Stat Comment: Reason For Exam: POST ANGIO BLEED PRE OP:: N Does Patient Have a Pacemaker?: No Critical Care Progress Note - Nutrition Nutrition: Nutrition Category Date Time Status Heart Healthy Diet [DIET] Diets 08/23/17 Lunch Ordered Attending/Attestation - Attestation I have personally seen and examined this patient.: Yes I have fully participated in the care of the patient.: Yes I have reviewed all pertinent clinical information: Yes Notes (Text): 08/24/17 14:21 72 yo female admitted to ICU after right iliac angioplasty complicated by hemorrhage with transient hypotension. During the procedure patient was given heparin 4000 units and protamine was given to reverse. 1L NS, 2 PRBC and 2 FFP as well as 1 bag of platelets are given in the ICU with jewish of hemodynamic stability and hemostasis as patient hemoglobin was relatively stable afterward overnight. Patient is normothermic and not acidotic. Hemodynamically and respiratory stable. If vascular surgery ok-->will transfer to [facility] ccm time 40 min
--- NOTE | 2017-08-24 12:03 | PN ---
DATE: SUBJECTIVE: The patient is in the Intensive Care Unit post angioplasty procedure of the right leg. The patient had bleeding in the retroperitoneal area and blood loss. The patient was given blood transfusion yesterday, hydration, and the patient is covered by medications at this time. The patient is on morphine for pain. The patient gets Lipitor 20 mg daily. The patient is on pantoprazole 40 mg IV daily and pain medication. The patient is also getting sleeping pills, Ambien 5 mg at bedtime. PHYSICAL EXAMINATION: VITAL SIGNS: This morning, the patient's pulse is 93, blood pressure 120/80. The patient's respirations are 15, O2 sat is 90% on room air. GENERAL: The patient has a history of chronic obstructive lung disease. The patient has a history of severe peripheral vascular disease in the past. HEENT: Head is normocephalic. The patient is relatively comfortable today. LUNGS: Clinically clear. Breath sounds are diminished bilaterally. HEART: Normal sinus rhythm. Sinus tachycardia. ABDOMEN: Soft. There is some minimal tenderness diffusely present in the abdomen, especially in the lower abdomen. EXTREMITIES: The patient's leg, the circulation seemed to be appropriate, color is pink. ASSESSMENT AND PLAN: The patient overall is improved from yesterday. We will continue current management and follow up. Most likely the patient will be transferred to Telemetry if the program management specialist feels it is appropriate to do so. Maliha Tariq MD
[2017-08-25] MEDS: Albuterol-Ipratrop 3 mg / 0.5 (3 ml) UD IH SCH ×4 (01:43→20:06)
[2017-08-25 07:18] LABS: BASO # 0.01 K/mm3 (0.0-2.0); BASO % 0.2 % (0.0-3.0); EOS # 0.1 (0.0-0.7); EOS % 1.7 % (1.5-5.0); GRAN # 3.55 (1.4-6.5); HEMOGLOBIN 9.4 g/dL (12.0-16.0); LYMPH # 1.6 (1.2-3.4); MEAN CELL VOLUME 86.4 fl (80.0-105.0); MEAN CORPUSCULAR HEMOGLOBIN 28.5 pg (25.0-35.0); MEAN PLATELET VOLUME 9.6 fl (7.0-11.0); MONO # 0.7 (0.1-0.6); MONO % 12.1 % (1.0-6.0); RBC 3.3 10^6/uL (3.5-6.1); RED CELL DISTRIBUTION WIDTH 15.4 % (11.5-14.5)
[2017-08-25 08:00] VITALS: RESP 20; TEMP 99.4
[2017-08-25 08:56] LABS: BLOOD UREA NITROGEN 10 mg/dL (7-21); CALCIUM 8.9 mg/dL (8.4-10.5); GFR AFRICAN-AMERICAN > 60; GFR NON-AFRICAN AMERICAN > 60
--- NOTE | 2017-08-25 09:35 | CP.PCM.PN ---
Subjective - Date & Time of Evaluation Date of Evaluation: 08/25/17 Time of Evaluation: 09:00 - Subjective Subjective: Surgery Progress note. Dr. Mosquera Pt seen and examined at bedside. No acute events overnight. Patient seen walking within the room. Does report some right medial thigh pain and right flank pain. No new complaints. Objective - Vital Signs/Intake and Output Vital Signs (last 24 hours): Temp Pulse Resp BP Pulse Ox 99.4 F 98 H 20 138/77 97 08/25/17 08:00 08/25/17 08:00 08/25/17 08:00 08/25/17 08:00 08/25/17 08:00 Intake and Output: 08/25/17 08/25/17 06:59 18:59 Intake Total 300 Balance 300 - Medications Medications: Current Medications Albuterol/Ipratropium (Duoneb 3 Mg/0.5 Mg (3 Ml) Ud) 3 ml IH [id number] [facility] Last Admin: 08/25/17 07:29 Dose: 3 ml Atorvastatin Calcium (Lipitor) 20 mg PO DAILY [facility] Last Admin: 08/24/17 10:11 Dose: 20 mg Diazepam (Valium) 5 mg PO DAILY PRN; Protocol PRN Reason: Anxiety Diphenhydramine HCl (Benadryl) 50 mg PO HS [facility] Last Admin: 08/24/17 22:07 Dose: 50 mg Diphenoxylate HCl/Atropine (Lomotil 0.025-2.5 Mg Tablet) 2.5 tab PO Q6H PRN PRN Reason: Diarrhea Sodium Bicarbonate 150 meq/ (Dextrose) 1,150 mls @ 100 mls/hr IV .[id number] [facility] Morphine Sulfate (Morphine) 2 mg IVP Q4H PRN PRN Reason: Pain, severe (8-10) Last Admin: 08/24/17 23:38 Dose: 2 mg Ondansetron HCl (Zofran Inj) 4 mg IVP ONCE PRN PRN Reason: Nausea/Vomiting Oxycodone/Acetaminophen (Percocet 5/325 Mg Tab) 1 tab PO Q4H PRN PRN Reason: Pain, moderate (4-7) Stop: 08/26/17 12:47 Last Admin: 08/24/17 22:07 Dose: 1 tab Pantoprazole Sodium (Protonix Inj) 40 mg IVP DAILY [facility] Last Admin: 08/24/17 10:11 Dose: 40 mg Tramadol HCl (Ultram) 50 mg PO Q6H PRN PRN Reason: Pain, moderate (4-7) Zolpidem Tartrate (Ambien) 5 mg PO HS PRN; Protocol PRN Reason: Sleep Last Admin: 08/23/17 22:08 Dose: 5 mg - Labs Labs: 08/25/17 06:30 08/25/17 07:00 PT 11.8 SECONDS (9.4-12.5) 08/23/17 22:25 INR 1.03 (0.93-1.08) 08/23/17 22:25 APTT 27.8 Seconds (25.1-36.5) 08/23/17 22:25 - Constitutional Appears: Well, No Acute Distress - Head Exam Head Exam: ATRAUMATIC, NORMAL INSPECTION, NORMOCEPHALIC - Eye Exam Eye Exam: EOMI - ENT Exam ENT Exam: Mucous Membranes Moist - Respiratory Exam Respiratory Exam: NORMAL BREATHING PATTERN. absent: Accessory Muscle Use, Respiratory Distress - Cardiovascular Exam Cardiovascular Exam: absent: JVD - GI/Abdominal Exam GI & Abdominal Exam: Soft. absent: Distended, Guarding, Rigid, Tenderness, Rebound - Extremities Exam Additional comments: Left groin dressing clean, dry and intact. Right femoral pulse palpable Bilateral distal DP and PT pulses palpable. No Poikilothermia noted. Mild tenderness to palpation right medial thigh and tenderness to light superficial palpation of right flank. No skin changes noted. - Neurological Exam Neurological Exam: Alert, Awake, Normal Gait, Oriented x3 - Psychiatric Exam Psychiatric exam: Normal Affect, Normal Mood - Skin Skin Exam: Dry, Intact, Normal Color, Warm Assessment and Plan - Assessment and Plan (Free Text) Assessment: 72yo F with retroperitoneal hemorrhage secondary to iatrogenic injury to Right External iliac artery Plan: - Monitor H/H - Transfuse prn - Pain management - No vascular surgery intervention indicated at this point Further recs as per Dr. Demetri Sutherland PGY1 surgery pager: [phone]
[2017-08-25] MEDS: Morphine 2 mg/ml ISec IVP PRN ×3 (09:52→21:01)
[2017-08-25] MEDS ORDERED: Potassium Chloride 20 mEq ER Tab PO ONE (09:55)
[2017-08-25] MEDS ORDERED: Oxycodone/Acetaminophen 10/325 mg Tab PO PRN (10:25)
--- NOTE | 2017-08-25 10:33 | PN ---
DATE: LOCATION: She is in room 367, bed 2, [facility] in [place]. SUBJECTIVE: The patient was admitted after procedure of angioplasty of right leg for peripheral vascular disease. She is complaining of some discomfort in the right lower abdomen today and the patient is going to receive pain medication as needed. PHYSICAL EXAMINATION VITAL SIGNS: The patient's pulse is 98. Blood pressure 138/77, respirations 20. The patient's O2 sat is 97%. LUNGS: Clear. HEART: Normal sinus rhythm. ABDOMEN: Soft. There is tenderness in the right lower quadrant. CENTRAL NERVOUS SYSTEM: No focal deficits. LABORATORY DATA: The hemoglobin is 9.4, the patient's hemoglobin is staying stable at this time. The patient's other medications consists of Ambien 5 mg daily. The patient is on Lipitor 10 mg daily, respiratory treatment with DuoNeb. The patient is on morphine p.r.n. for pain. The patient gets pantoprazole 40 mg IV daily. Her condition is improving. The patient is able to get out of bed, go to the bathroom. At this time, we will follow up and after the invasive vascular department see the patient in the morning tomorrow, possibly the patient will be able to go home. Maliha Tariq MD
[2017-08-26] MEDS: Albuterol-Ipratrop 3 mg / 0.5 (3 ml) UD IH SCH ×2 (01:11→07:20)
[2017-08-26 06:23] LABS: BASO # 0.01 K/mm3 (0.0-2.0); BASO % 0.2 % (0.0-3.0); EOS # 0.2 (0.0-0.7); EOS % 3.1 % (1.5-5.0); GRAN # 3.79 (1.4-6.5); GRAN % 59.6 % (50.0-68.0); LYMPH # 1.6 (1.2-3.4); LYMPH % 25.5 % (22.0-35.0); MEAN CELL VOLUME 87.2 fl (80.0-105.0); MEAN CORPUSCULAR HEMOGLOBIN 28.4 pg (25.0-35.0); MEAN CORPUSCULAR HGB CONC 32.6 g/dl (31.0-37.0); MEAN PLATELET VOLUME 9.6 fl (7.0-11.0); MONO # 0.7 (0.1-0.6); MONO % 11.6 % (1.0-6.0); RBC 3.52 10^6/uL (3.5-6.1); RED CELL DISTRIBUTION WIDTH 15.5 % (11.5-14.5); WHITE BLOOD COUNT 6.4 10^3/ul (4.5-11.0)
[2017-08-26 08:28] VITALS: BP 131/74; PULSE 90; O2SAT 95
--- NOTE | 2017-08-26 09:08 | CON ---
DATE: 08/23/2017 HISTORY OF PRESENT ILLNESS: This is a 72-year-old lady with history of anal carcinoma, status post XRT and chemotherapy, peripheral vascular disease, who initially came today to [facility] for angioplasty of the right iliac artery and right superficial femoral artery. The patient also had her Perm-A-Cath that she used for chemotherapy removed today. At the end of procedure, the patient had brisk bleeding from the iliac artery, requiring stent placement. The patient dropped blood pressure and was given IV fluid bolus. ICU consult was called for further management and monitoring. At the time of presentation, the patient is normotensive and in normal sinus rhythm. She did not have any complaints on chest pain, shortness of breath. She did however point to right lower quadrant, which was mildly tender on palpation as well, and also having some abdominal discomfort in that area. No fever, no chills, no shortness of breath, no diarrhea, no constipation, no nausea, no vomiting. PAST MEDICAL HISTORY: Anal carcinoma, diverticulitis, and peripheral vascular disease. SOCIAL HISTORY: The patient is active smoker. No alcohol or illicit drug abuse. FAMILY HISTORY: Noncontributory. HOME MEDICATIONS: Ambien, tramadol, Valium, cilostazol, Lipitor. ALLERGIES: CIPROFLOXACIN. REVIEW OF SYSTEMS: Review of 12-organ system other than mentioned in history of present illness is negative. PHYSICAL EXAMINATION: VITAL SIGNS: Temperature 97.8, blood pressure 120/70 - up from 98/57, heart rate 69, respiratory rate 16. The patient is 100% on nasal cannula. HEENT: Head and neck atraumatic. LUNGS: Clear auscultation bilaterally. HEART: Regular rate and rhythm. S1 and S2 normal. ABDOMEN: Soft. Mildly tender in right lower quadrant area. No expanding or visible hematoma identified. MUSCULOSKELETAL: Trace bilateral pedal and ankle edema. VASCULAR: There is a well-Dopplerable pulse in left and right anterior tibialis posterior, and well-Dopplerable pulse on right TPA. No pulse identified on left DPA. Nevertheless, both feet are warm without paresthesia, without neurological deficit. Skin is pink. SKIN: Moist. PSYCHIATRIC: The patient is alert and oriented x3, not in respiratory or otherwise distress. LABORATORY DATA: Hemoglobin 6.6, WBC 6.6, platelet count 193. Sodium 147, potassium 3.9, chloride 110, carbon dioxide 26, BUN 17, creatinine 1.0. Troponin less than 0.01. Glucose 93, calcium 9.3. VBG showed lactic acid 1.2, pH 7.24. INR 1.15. PTT 51. Chest x-ray; no acute pulmonary disease, questionable emphysema. EKG; no ischemic changes. ASSESSMENT AND PLAN: This is a 72-year-old lady with peripheral vascular disease, malignancy, emphysema and active smoking history, who presented to ICU after brisk bleeding, most likely from the iliac artery angioplasty, complicated by retroperitoneal bleed until proven otherwise. CAT scan of the abdomen and pelvis is pending. The patient will be transfused 2 units of blood. Serial CBC will be followed. I will touch base with Dr. Enrique Velez to see if any heparin was given during the procedure, as PT has substantially elevated. If so, protamine will be given slowly. We will continue with maintenance IV fluid. We will avoid hypothermia, dilutional coagulopathy and lactic acidosis. I will repeat ABG to follow up on pH, given that the patient has low pH in venous blood. The patient will be admitted to ICU. We will continue target euvolemia, euglycemia, normothermia, and oxygen saturation more than 90%. We will continue with DVT and GI prophylaxes. Addendum: CT abdo/pelvis: large retroperitoneal bleed. Dr. Gandhi was called. Hemodynamics is stable. 2 PRBC/2FFP and 1 bag of platelets were ordered and started. CBC will be checked and further blood product transfusion will be considered based on results. ccm time 40 min Josep Rivera MD JUAN CARLOS
[2017-08-26] MEDS: Morphine 2 mg/ml ISec IVP PRN (09:09)
--- NOTE | 2017-08-26 10:05 | PN ---
DATE: LOCATION: The patient is in room 367, bed 2, [facility] in [place]. SUBJECTIVE: The patient was admitted on Saturday after the procedure of angioplasty for peripheral vascular disease. The patient is seen this morning. She is comfortable. She had some pain in the leg and the low abdomen, but she is adamant of going home. PHYSICAL EXAMINATION VITAL SIGNS: The pulse is 95, blood pressure 140/70, respirations are 20, O2 sat is 96% on room air. HEENT: The patient's head is normocephalic. LUNGS: Clear. HEART: Normal sinus rhythm. S1 and S2 present. ABDOMEN: Soft. Mild tenderness in the right lower quadrant. No localizing signs. CENTRAL NERVOUS SYSTEM: No focal deficits. LABORATORY DATA: The patient's blood work shows hemoglobin is 10.0. The patient's platelet count is 191,000. White cell count is within normal range. Patient's chemistries, potassium is 3.5. All other parameters including renal function is normal. The patient's condition is satisfactory, stable. The patient possibly can go home after the vascular surgeon and the Interventional Radiology see the patient and they can clear the patient. The patient will be placed on aspirin 81 mg, Lipitor 20 mg daily. The patient knows that she should not smoke. She will take heart-healthy diet. PROGNOSIS: Good. CONDITION: Improved. Maliha Tariq MD
--- NOTE | 2017-08-27 16:54 | DS ---
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 Enrique Velez. Patient began bleeding and her hemoglobin dropped from 9.9 to 6.6. Her blood pressure also dropped. She was transferred to the intensive care unit for admission. Patient had recently stopped smoking, although she was a heavy smoker for many years. She was admitted to the ICU for acute blood loss anemia. She was given transfusion. Her hemoglobin was monitored. She was started on respiratory treatments for COPD, Lipitor for hyperlipidemia. After transfusion, patient's hemoglobin went up to 9.1. She continued to complain of pain in the right medial thigh area with some tenderness in the abdomen. She was given morphine IV as needed for the pain. Eventually, the pain did subside. Patient eventually was able to walk, and was discharged home in the improved condition. Her hemoglobin was 10 on discharge. DISCHARGE DIAGNOSES: Retroperitoneal bleed status post angiogram, peripheral vascular disease, hyperlipidemia, emphysema, history of anorectal carcinoma status post chemoradiation. DISCHARGE MEDICATIONS: Aspirin 81 mg once a day, Lipitor 20 mg once a day, Ultram 25 mg once a day as needed for pain, Valium 5 mg once a day as needed for anxiety. FOLLOWUP: Patient will follow up in the office in 1 to 2 weeks. Shaheen Tariq MD
== END 2017-08-26 12:31 | disposition home or self-care (01) | DRG 907 ==
LOC: SDSVAS 07:10 → ICU 14:15 → 3RNO 08-24 15:45
PROVIDERS: ADMIT Radiology Vascular & Interventional Radiology; ATTEND Internal Medicine
PROC: 04CK3ZZ Extirpation of Matter from Right Femoral Artery, Percutaneous Approach (ICD-10-PCS; principal; 2017-08-23)
PROC: 047H3EZ Dilation of Right External Iliac Artery with Two Intraluminal Devices, Percutaneous Approach (ICD-10-PCS; 2017-08-23)
PROC: 047K3ZZ Dilation of Right Femoral Artery, Percutaneous Approach (ICD-10-PCS; 2017-08-23)
PROC: B41DYZZ Fluoroscopy of Aorta and Bilateral Lower Extremity Arteries using Other Contrast (ICD-10-PCS; 2017-08-23)
PROC: 0JPV3WZ Removal of Totally Implantable Vascular Access Device from Upper Extremity Subcutaneous Tissue and Fascia, Percutaneous Approach (ICD-10-PCS; 2017-08-23)
PROC: 30233K1 Transfusion of Nonautologous Frozen Plasma into Peripheral Vein, Percutaneous Approach (ICD-10-PCS; 2017-08-23)
PROC: 30233N1 Transfusion of Nonautologous Red Blood Cells into Peripheral Vein, Percutaneous Approach (ICD-10-PCS; 2017-08-23)
PROC: 30233R1 Transfusion of Nonautologous Platelets into Peripheral Vein, Percutaneous Approach (ICD-10-PCS; 2017-08-23)
PROC: 3E0F7GC Introduction of Other Therapeutic Substance into Respiratory Tract, Via Natural or Artificial Opening (ICD-10-PCS; 2017-08-23)
DX: I97.51 Accidental puncture and laceration of a circulatory system organ or structure during a circulatory system procedure (principal); R57.8 Other shock; D62 Acute posthemorrhagic anemia; I97.618 Postprocedural hemorrhage of a circulatory system organ or structure following other circulatory system procedure; I70.213 Atherosclerosis of native arteries of extremities with intermittent claudication, bilateral legs; J43.9 Emphysema, unspecified; E78.5 Hyperlipidemia, unspecified; F17.210 Nicotine dependence, cigarettes, uncomplicated; K21.9 Gastro-esophageal reflux disease without esophagitis; Y84.8 Other medical procedures as the cause of abnormal reaction of the patient, or of later complication, without mention of misadventure at the time of the procedure; Z85.048 Personal history of other malignant neoplasm of rectum, rectosigmoid junction, and anus; Z85.42 Personal history of malignant neoplasm of other parts of uterus; Z92.21 Personal history of antineoplastic chemotherapy; Z92.3 Personal history of irradiation; Z90.710 Acquired absence of both cervix and uterus

== ENCOUNTER 2018-03-18 08:52 | Day surgery (SDC) | payer MEDICARE ==
[2018-01-17 16:12] VITALS: BMI 22.3
[2018-03-18] MEDS ORDERED: Propofol 10 mg/ml Inj (20 ML) ONE (10:19)
[2018-03-18] MEDS ORDERED: Lidocaine PF 2% (5 ml) Inj (For Cardiac Arrhy) ONE (10:19)
[2018-03-18] MEDS ORDERED: ePHEDrine 50 mg/ml Inj ONE (10:59)
[2018-03-18] MEDS ORDERED: Sodium Chloride 0.9% 1,000 ML IV SCH (11:45)
[2018-03-18 12:18] VITALS: RESP 18; TEMP 97.6
[2018-03-18 12:38] VITALS: BP 137/74; PULSE 72; O2SAT 97
== END 2018-03-18 13:26 | disposition home or self-care (01) ==
LOC: ENDO 08:52
PROVIDERS: ATTEND Internal Medicine Gastroenterology
DX: D50.9 Iron deficiency anemia, unspecified (principal); K29.50 Unspecified chronic gastritis without bleeding; K21.9 Gastro-esophageal reflux disease without esophagitis; K57.30 Diverticulosis of large intestine without perforation or abscess without bleeding; K64.4 Residual hemorrhoidal skin tags; K64.8 Other hemorrhoids; Z85.828 Personal history of other malignant neoplasm of skin
CPT/HCPCS: 43239; 45380; 88305; 88312; 88342; J2704; J3010; J7030; J7040

== ENCOUNTER 2018-07-03 09:42 | Outpatient (CLI) | payer MEDICARE | END 2018-07-03 09:43 | disposition home or self-care (01) | LOC: RAD 09:42 ==

== ENCOUNTER 2018-07-29 08:59 | Outpatient (CLI) | payer MEDICARE | END 2018-07-29 09:00 | disposition home or self-care (01) | LOC: LAB 08:59 ==

== ENCOUNTER 2018-08-06 12:23 | Outpatient (CLI) | payer MEDICARE | END 2018-08-06 12:24 | disposition home or self-care (01) | LOC: LAB 12:23 ==

== ENCOUNTER 2018-09-16 13:23 | Outpatient (CLI) | payer MEDICARE | END 2018-09-16 13:24 | disposition home or self-care (01) | LOC: OPLAB 13:23 ==

== ENCOUNTER 2018-09-30 11:29 | Outpatient (CLI) | payer MEDICARE | END 2018-09-30 11:30 | disposition home or self-care (01) | LOC: LAB 11:29 ==

== ENCOUNTER 2018-10-03 08:45 | Outpatient (CLI) | payer MEDICARE | END 2018-10-03 08:46 | disposition home or self-care (01) | LOC: RAD 08:45 | DX: I71.9 Aortic aneurysm of unspecified site, without rupture (principal) ==